=== PATIENT | female | born 1985 | race Caucasian/White ===

== ENCOUNTER 2017-03-28 19:20 | Emergency (ER) | payer SELFPAY ==
[~2017-03-28 19:20] MED LIST: ACET500C5 PO; CETI10CA PO; CITROMA PO; DICY10CA60 PO; DOCU-144 PO; GUAI120011 PO; IBUP-1542 PO; TRAM50TA2 PO
[2017-03-29] MEDS ORDERED: ACET325T33 PO (22:15)
[2017-03-29] MEDS ORDERED: IBUP400T22 PO (22:15)
[2017-03-29] MEDS ORDERED: ONDA4TAB8 PO (22:17)
[2017-03-29] MEDS ORDERED: CEPH-443 PO (22:21)
== END 2017-03-28 20:45 | disposition left against medical advice (07) ==
LOC: E/R 19:20
DX: Z53.21 Procedure and treatment not carried out due to patient leaving prior to being seen by health care provider (principal)

== ENCOUNTER 2017-03-29 17:06 | Emergency (ER) | payer OTHER ==
[~2017-03-29] VITALS: Wt 67.3 kg
[2017-03-29] MEDS ORDERED: SOD CHLORIDE 0.9% 1,000 ML IV STA (19:58)
[2017-03-29] MEDS ORDERED: ONDANSETRON 4 MG INJ IV STA (19:58)
[2017-03-29] MEDS ORDERED: morphine 4 MG/ML VIAL IV STA ×2 (19:58→21:02)
[2017-03-29 20:24] LABS: URINE BLOOD (Dip) POC 1+ (NEGATIVE)
[2017-03-29 20:43] LABS: BASOPHILS % 0.3 % (0.0-2.0); EOSINOPHILS # 0.1 10^3/ul (0.0-0.5); EOSINOPHILS % 1.4 % (0.0-7.0); HEMATOCRIT 38.3 % (37.0-47.0); HEMOGLOBIN 13.2 g/dl (12.0-16.0); LYMPHOCYTES # 2.6 10^3/ul (0.8-2.9); LYMPHOCYTES % 27.7 % (15.0-51.0); MEAN CORPUSCULAR HEMOGLOBIN 30.6 pg (29.0-33.0); MEAN CORPUSCULAR HGB CONC 34.5 g/dl (32.0-37.0); MEAN CORPUSCULAR VOLUME 88.9 fl (82.0-101.0); MEAN PLATELET VOLUME 10.1 fl (7.4-10.4); MONOCYTE # 0.7 10^3/ul (0.3-0.9); MONOCYTES % 7.6 % (0.0-11.0); NEUTROPHILS % 62.4 % (39.0-77.0); PLATELET COUNT 235 10^3/UL (140-415); RED BLOOD COUNT 4.31 10^6/ul (4.20-5.40); WHITE BLOOD COUNT 9.4 10^3/ul (4.8-10.8)
[2017-03-29 20:59] LABS: ADD UMIC YES; UR ASCORBIC ACID 40 mg/dL (NEGATIVE); UR BACTERIA FEW /HPF (NONE SEEN); UR BILIRUBIN (Dip) NEGATIVE (NEGATIVE); UR BLOOD (Dip) NEGATIVE (NEGATIVE); UR CLARITY CLOUDY (CLEAR); UR COLOR AMBER (YELLOW); UR GLUCOSE (Dip) NEGATIVE (NEGATIVE); UR KETONES (Dip) NEGATIVE (NEGATIVE); UR LEUKOCYTE ESTERASE (Dip) 2+ Leu/ul (NEGATIVE); UR MUCUS FEW /HPF (NONE SEEN); UR NITRITE (Dip) POSITIVE (NEGATIVE); UR RBC 4 /HPF (0-5); UR SPECIFIC GRAVITY (Dip) 1.011 (1.003-1.030); UR SQUAMOUS EPITHELIAL CELL FEW /HPF (FEW); UR TOTAL PROTEIN (Dip) NEGATIVE (NEGATIVE); UR UROBILINOGEN (Dip) NEGATIVE (NEGATIVE)
[2017-03-29 21:06] LABS: ALBUMIN 4.6 g/dl (3.3-4.9); ALBUMIN/GLOBULIN RATIO 1.15; BILIRUBIN,INDIRECT 0.1 mg/dl (0-1.1); BILIRUBIN,TOTAL 0.1 mg/dl (0.2-1.3); CALCIUM 10.1 mg/dl (8.4-10.2); CREATININE 0.76 mg/dl (0.44-1.00); POTASSIUM 4.1 mmol/L (3.5-5.1); TOTAL PROTEIN 8.6 g/dl (6.1-8.1)
[2017-03-29] MEDS ORDERED: FAMOTIDINE 20 MG INJ IV ONE (21:30)
--- NOTE | 2017-03-29 21:42 | RADRPT ---
PROCEDURE: CT Head without contrast. CLINICAL INDICATION: headache TECHNIQUE: Continuous axial CT images were obtained from the base of skull to the vertex. No cont rast was administered. The calculated radiation dose measures 769 mGy centimeters. The CTDI measures 40 mGy One or more of the following dose reduction techniques were used: Automated exposure control. Adjustment of the mA and/or kV according to patient size. Use of iterative reconstruction technique. COMPARISON: None available FINDINGS: The ventricles are symmetric and normal in size. There is no mass effect or midline shift. There i s no abnormal intra-axial or extra-axial fluid collection. There is no evidence of intracranial hem orrhage. There are no abnormal areas of increased or decreased attenuation in the brain parenchyma. The bony calvarium is intact. The orbital soft tissue contents are unremarkable. Paranasal sinuses appear clear IMPRESSION: No mass effect or acute intracranial bleed. Unremarkable CT brain. RPTAT: HBST .Magan Chiang MD, MD Date Time Electronically viewed and signed by .Magan Chiang MD, on 03/29/2017 21:42 .T/
[2017-03-29] MEDS ORDERED: CEFTRIAXONE 1 GM/50 ML (PMX) 50 ML IVPB ONE (22:00)
--- NOTE | 2017-03-29 22:00 | RADRPT ---
PROCEDURE: CT abdomen and pelvis without contrast. CLINICAL INDICATION: Abdominal Pain TECHNIQUE: CT scan of the abdomen and pelvis without contrast was performed. The patient was scan francisco without intravenous contrast. 3-D coronal reformatted images were obtained from the axial [facility] e images. The calculated radiation dose measures 374 mGy centimeters. The CTDI measures 7 mGy. One or more of the following dose reduction techniques were used: Automated exposure control. Adjustment of the mA and/or kV according to patient size. Use of iterative reconstruction technique. COMPARISON: None. FINDINGS: CT abdomen: There is a 5 mm nodule or focal scarring in the lingula, similar from prior exam.. The liver is normal in size and density, without intrahepatic biliary dilatation. The spleen and p ancreas are unremarkable noncontrast appearance. The gallbladder appears within normal limits. The adrenal glands are symmetric and normal. The kidneys appear normal in size and contour. There is a left mid pole renal cyst, 6 mm. No renal c alculus or hydronephrosis is visualized. There is no ascites or retroperitoneal lymphadenopathy. Visualized bowel loops appear within normal limits. The appendix appears normal. CT pelvis: The urinary bladder appears normal. The pelvic organs are within normal limits. There is no abnorm al pelvic mass or adenopathy. There is no pelvic free fluid. Visualized osseous structures appear unremarkable. IMPRESSION: Unremarkable noncontrast CT scan of the abdomen and pelvis. The appendix is seen and appears within normal limits. No hydronephrosis or nephrolithiasis. 5 mm pulmonary nodule or focal scarring in the lingula, similar from prior examination. RPTAT: HBST .Magan Chiang MD, Date Time Electronically viewed and signed by .Magan Chiang MD, MD on 03/29/2017 21:59 .T/
[2017-03-29] MEDS ORDERED: ACET325T33 PO (22:15)
[2017-03-29] MEDS ORDERED: IBUP400T22 PO (22:15)
[2017-03-29] MEDS ORDERED: ONDA4TAB8 PO (22:17)
[2017-03-29] MEDS ORDERED: CEPH-443 PO (22:21)
[2017-03-29] MEDS ORDERED: ONDANSETRON 4 MG TAB PO ONE (22:30)
--- NOTE | 2017-03-29 22:51 | ERD ---
ER Documentation Chief Complaint Date/Time DATE: 03/29/17 TIME: 22:41 Chief Complaint lower mid abd pain, lafleur, n/v HPI This is a 31-year-old female presenting to emergency department for lower jessica pain with nausea and vomiting. Patient states she has chronic lower abdominal pain and history of endometriosis. Patient states she takes "strong pain medication" and at times they make her nauseous and at times vomit. No vaginal bleeding or vaginal discharge. Patient's last menstrual period 8 months ago and patient states she receives a "shot every month" and therefore does not have her period.No dysuria, hematuria, urinary frequency or urgency. No new sexual partners. Patient also reports sudden onset of severe headache. Patient states this is the worst headache she is ever had. No confusion or altered mental status. No slurred speech, weakness or fatigue. No numbness or tingling. No blurry vision or loss of vision. Patient states she has never had a headache like this before. ROS All systems reviewed and are negative except as per history of present illness. Medications Home Meds Active Scripts Cephalexin* (Keflex*) 500 Mg Capsule, 500 MG PO BID for 7 Days, CAP Prov:ROSALBA GARCIA NP 03/29/17 Ondansetron Hcl* (Zofran*) 4 Mg Tablet, 4 MG PO Q6H for NAUSEA AND/OR VOMITING, #10 TAB Prov:ROSALBA GARCIA NP 03/29/17 Acetaminophen* (Tylenol*) 325 Mg Tablet, 1 TAB PO Q6 Y for PAIN AND OR ELEVATED TEMP, #20 TAB Prov:ROSALBA GARCIA NP 03/29/17 Ibuprofen* (Motrin*) 400 Mg Tab, 400 MG PO Q6, #15 TAB Prov:ROSALBA GARCIA NP 03/29/17 Docusate Sodium* (Colace*) 100 Mg Capsule, 100 MG PO TID, #30 CAP Prov:MAXI STOREY MD 07/08/16 Tramadol HCl (Tramadol HCl) 50 Mg Tablet, 50 MG PO Q4 Y for PAIN, #20 TAB Prov:MAXI STOREY MD 07/08/16 Magnesium Citrate* (Citroma*) 300 Ml Soln, 300 ML PO ONCE for 1 Day, #1 BOTTLE Prov:MAXI STOREY MD 07/08/16 Cetirizine Hcl* (Zyrtec*) 10 Mg Capsule, 10 MG PO DAILY, #10 TAB.CHEW Prov:TENNILLE DIXONWale STEVE 06/18/16 Guaifenesin (Mucinex) 1,200 Mg Tab.er.12h, 1200 MG PO BID for 7 Days, TAB Prov:TENNILLE DIXONWale STEVE 06/18/16 Acetaminophen* (Tylophen*) 500 Mg Capsule, 1 CAP PO Q6H Y for PAIN AND OR ELEVATED TEMP, #30 CAP Prov:TENNILLE DIXONWale STEVE 06/18/16 Ibuprofen* (Motrin*) 600 Mg Tab, 600 MG PO Q6, #30 TAB Prov:DESTINYTENNILLE MWale STEVE 06/18/16 Dicyclomine Hcl* (Bentyl*) 10 Mg Capsule, 10 MG PO QID, #30 CAP Prov:ZARINA IBARRA 05/04/16 Docusate Sodium* (Colace*) 100 Mg Capsule, 100 MG PO TID, #30 CAP Prov:ZARINA IBARRA 05/04/16 Allergies Allergies: Coded Allergies: No Known Allergy (Unverified , 07/08/16) PMhx/Soc History of Surgery: Yes (,Tubal Ligation) Anesthesia Reaction: No Hx Neurological Disorder: No Hx Respiratory Disorders: No Hx Cardiac Disorders: No Hx Psychiatric Problems: No Hx Miscellaneous Medical Probl: Yes (Endometrosis,Pyelonephritis) Hx Alcohol Use: No Hx Substance Use: No Hx Tobacco Use: No Smoking Status: Never smoker Physical Exam Vitals Vital Signs Date Time Temp Pulse Resp B/P Pulse Ox O2 Delivery O2 Flow Rate FiO2 03/29/17 17:23 99.1 99 20 116/79 98 Physical Exam Const: Alert, no acute distress Head: Atraumatic Eyes: Normal Conjunctiva, PERRL, EOMs intact. No subconjunctival hemorrhage. ENT: Normal External Ears, Nose and Mouth. Neck: Full range of motion..~ No meningismus. Resp: Clear to auscultation bilaterally. No wheezing, rhonchi or crackles. No stridor or labored breathing. Patient is talking in complete sentences. Cardio: Regular rate and rhythm, no murmurs Abd: Soft, non tender, non distended. Normal bowel sounds. Negative Omalley sign. Negative rebound tenderness. No tenderness at McBurney's point. Patient has suprapubic tenderness. Skin: No petechiae or rashes Back: No midline or flank tendernessNo CVA tenderness. Ext: No cyanosis, or edema Neur: Awake and alert Psych: Normal Mood and Affect Result Diagram: 03/29/17201203/29/172012 Results 24 hrs Laboratory Tests Test 03/29/17 20:13 03/29/17 20:30 White Blood Count 9.410^3/ul Red Blood Count 4.3110^6/ul Hemoglobin 13.2g/dl Hematocrit 38.3% Mean Corpuscular Volume 88.9fl Mean Corpuscular Hemoglobin 30.6pg Mean Corpuscular Hemoglobin Concent 34.5g/dl Red Cell Distribution Width 12.0% Platelet Count 78150^3/UL Mean Platelet Volume 10.1fl Neutrophils % 62.4% Lymphocytes % 27.7% Monocytes % 7.6% Eosinophils % 1.4% Basophils % 0.3% Nucleated Red Blood Cells % 0.0/100WBC Neutrophils # (Manual) 5.910^3/ul Lymphocytes # 2.610^3/ul Monocytes # 0.710^3/ul Eosinophils # 0.110^3/ul Basophils # 0.010^3/ul Nucleated Red Blood Cells # 0.010^3/ul Urine Color FRANCISCA Urine Clarity CLOUDY Urine pH 6.0 Urine Specific [place] 1.011 Urine Ketones NEGATIVEmg/dL Urine Nitrite POSITIVEmg/dL Urine Bilirubin NEGATIVEmg/dL Urine Urobilinogen NEGATIVEmg/dL Urine Leukocyte Esterase 2+Dru/ul Urine Microscopic RBC 4/HPF Urine Microscopic WBC 61/HPF Urine Squamous Epithelial Cells FEW/HPF Urine Bacteria FEW/HPF Urine Mucus FEW/HPF Urine Hemoglobin NEGATIVEmg/dL Urine Glucose NEGATIVEmg/dL Urine Total Protein NEGATIVEmg/dl Sodium Level 144mmol/L Potassium Level 4.1mmol/L Chloride Level 98mmol/L Carbon Dioxide Level 31mmol/L Anion Gap 19 Blood Urea Nitrogen 14mg/dl Creatinine 0.76mg/dl Glucose Level 89mg/dl Calcium Level 10.1mg/dl Total Bilirubin 0.1mg/dl Direct Bilirubin 0.00mg/dl Indirect Bilirubin 0.1mg/dl Aspartate Amino Transf (AST/SGOT) 28IU/L Alanine Aminotransferase (ALT/SGPT) 31IU/L Alkaline Phosphatase 83IU/L Total Protein 8.6g/dl Albumin 4.6g/dl Globulin 4.00g/dl Albumin/Globulin Ratio 1.15 Lipase 43U/L Serum HCG, Qualitative NEGATIVE Beta HCG, Quantitative < 2.4mIU/ml Bedside Urine pH (LAB) 6.0 Bedside Urine Protein (LAB) Negative Bedside Urine Glucose (UA) Negative Bedside Urine Ketones (LAB) Negative Bedside Urine Blood 1+ Bedside Urine Nitrite (LAB) Positive Bedside Urine Leukocyte Esterase (L 1+ Current Medications Medications (Trade) Dose Ordered Sig/Artemio Route PRN Reason Start Time Stop Time Status Last Admin Dose Admin Sodium Chloride (NS) 1,000 ml @ 1,000 mls/hr Q1H STAT IV 03/29/17 19:58 03/29/17 20:57 DC 03/29/17 20:27 Morphine Sulfate (morphine) 4 mg ONCE STAT IV 03/29/17 19:58 03/29/17 20:01 DC 03/29/17 20:26 Ondansetron HCl (Zofran Inj) 4 mg ONCE STAT IV 03/29/17 19:58 03/29/17 20:01 DC 03/29/17 20:26 Morphine Sulfate (morphine) 4 mg ONCE STAT IV 03/29/17 21:02 03/29/17 21:03 DC 03/29/17 21:12 Famotidine 20 mg 20 mg ONCE ONCE IV 03/29/17 21:30 03/29/17 21:31 DC 03/29/17 21:38 Ceftriaxone Sodium (Rocephin) 50 ml @ 100 mls/hr ONCE ONCE IVPB 03/29/17 22:00 03/29/17 22:29 DC 03/29/17 22:28 Ondansetron HCl (Zofran Tab) 4 mg ONCE ONCE PO 03/29/17 22:30 03/29/17 22:38 DC Procedures/[place] [address] Radiology Main Line: [phone] DIAGNOSTIC IMAGING REPORT Patient: RUCHI GANNON : 1985 Age: 31 Sex: F MR #: [id number] DOS: 03/29/171957 Ordering MD: ROSALBA GARCIA NP Location: [facility] Room/Bed: PROCEDURE: CT abdomen and pelvis without contrast. CLINICAL INDICATION: Abdominal Pain TECHNIQUE: CT scan of the abdomen and pelvis without contrast was performed. The patient was scanned without intravenous contrast. 3-D coronal reformatted images were obtained from the axial source images. The calculated radiation dose measures 374 mGy centimeters. The CTDI measures 7 mGy. One or more of the following dose reduction techniques were used: Automated exposure control. Adjustment of the mA and/or kV according to patient size. Use of iterative reconstruction technique. COMPARISON: None. FINDINGS: CT abdomen: There is a 5 mm nodule or focal scarring in the lingula, similar from prior exam.. The liver is normal in size and density, without intrahepatic biliary dilatation. The spleen and pancreas are unremarkable noncontrast appearance. The gallbladder appears within normal limits. The adrenal glands are symmetric and normal. The kidneys appear normal in size and contour. There is a left mid pole renal cyst, 6 mm. No renal calculus or hydronephrosis is visualized. There is no ascites or retroperitoneal lymphadenopathy. Visualized bowel loops appear within normal limits. The appendix appears normal. CT pelvis: The urinary bladder appears normal. The pelvic organs are within normal limits. There is no abnormal pelvic mass or adenopathy. There is no pelvic free fluid. Visualized osseous structures appear unremarkable. IMPRESSION: Unremarkable noncontrast CT scan of the abdomen and pelvis. The appendix is seen and appears within normal limits. No hydronephrosis or nephrolithiasis. 5 mm pulmonary nodule or focal scarring in the lingula, similar from prior examination. [place] [address] Radiology Main Line: [phone] DIAGNOSTIC IMAGING REPORT Patient: RUCHI GANNON : 1985 Age: 31 Sex: F MR #: [id number] [facility] #: [id number] DOS: 03/29/172127 Ordering MD: ROSALBA GARCIA NP Location: [facility] Room/Bed: PROCEDURE: CT Head without contrast. CLINICAL INDICATION: headache TECHNIQUE: Continuous axial CT images were obtained from the base of skull to the vertex. No contrast was administered. The calculated radiation dose measures 769 mGy centimeters. The CTDI measures 40 mGy One or more of the following dose reduction techniques were used: Automated exposure control. Adjustment of the mA and/or kV according to patient size. Use of iterative reconstruction technique. COMPARISON: None available FINDINGS: The ventricles are symmetric and normal in size. There is no mass effect or midline shift. There is no abnormal intra-axial or extra-axial fluid collection. There is no evidence of intracranial hemorrhage. There are no abnormal areas of increased or decreased attenuation in the brain parenchyma. The bony calvarium is intact. The orbital soft tissue contents are unremarkable. Paranasal sinuses appear clear IMPRESSION: No mass effect or acute intracranial bleed. Unremarkable CT brain. MDM: This is a 31-year-old female presenting to emergency department with lower abdominal pain, nausea, vomiting and headache. Patient has intermittent chronic lower abdominal pain and history of endometriosis. [place] Patient had one episode of nonbloody nonbilious emesis today. Patient still feels nauseous and has sudden onset severe headache. No weakness, dizziness, loss of vision or blurry vision. No fevers or chills. IV access obtained and patient given morphine 4 mg IV and Zofran 4 mg IV . CBC shows no significant anemia or infection. CMP shows no significant electrolyte imbalance. Liver enzymes are normal. Bilirubin is normal. Glucose is normal. Lipase is 43. Urine shows 2+ leukocyte esterase , White blood cells 61 and positive nitrite. Urine is negative. Beta- hCG negative. CT abdomen and pelvis reviewed by radiologist is unremarkable. Patient is requesting a brain CT and states this is the worst headache she is ever had and is concerned. There is no neuro deficits on physical exam. Patient is alert and oriented to person place and time. However because patient has sudden onset headache and states this is the worst headache she has had a brain CT was ordered. Brain CT reviewed by radiologist is unremarkable.Upon reassessment of patient, patient states pain and nausea have improved. No active vomiting while in the ED. Denies headache. Differential diagnosis includes but not limited to acute appendicitis, diverticulitis, diverticulosis, bowel obstruction, constipation, infectious colitis, irritable bowel syndrome, inflammatory bowel disease, viral gastroenteritis, abdominal aortic aneurysm, food intolerance, celiac disease, UTI, pyelonephritis, nephrolithiasis, acute urinary retention or colorectal cancer. I doubt any emergent conditions such as appendicitis, diverticulitis, pyelonephritis, bowel obstruction, abdominal aortic aneurysm at this time due to normal vital signs and normal lab results. Patient is appropriate for outpatient management. Patient will be given prescription for Tylenol, ibuprofen and Zofran. Instructed patient to follow- up with primary care provider in the next 2-3 days for reassessment and additional management. Return to ED for any high fever, chest pain, difficulty breathing, shortness breath, wheezing, vomiting, diarrhea, abdominal pain or any new or worsening symptoms. Patient verbalizes understanding. All questions answered at discharge. Disclaimer: Inadvertent spelling and grammatical errors are likely due to EHR/ dictation software use and do not reflect on the overall quality of patient care. Also, please note that the electronic time recorded on this note does not necessarily reflect the actual time of the patient encounter. Departure Diagnosis: Primary Impression: UTI (urinary tract infection) Urinary tract infection type: acute cystitis Hematuria presence: with hematuria Qualified Code: N30.01 - Acute cystitis with hematuria Additional Impression: Abdominal pain Abdominal location: generalized Qualified Code: R10.84 - Generalized abdominal pain Condition: Stable Patient Instructions: Understanding Urinary Tract Infections (UTIs) Ref[facility] Usted se lafleur hecho un examen mdico de control que le indica que no est en ruth condicin que requiera tratamiento urgente en el Departamento de Emergencia. Un estudio ms profundo y el tratamiento de garland condicin pueden esperar sin ningn riesgo hasta que usted sea atendida/o en el consultorio de garland mdico o ruth cl toshia. Es responsabilidad suya arreglar ruth jorge para el seguimiento del radha. MANEJO DE CONDICIONES NO URGENTES EN EL FUTURO 1) Si usted tiene un mdico de atencin primaria: Usted debera llamar a garland mdico de atencin primaria antes de venir al departamento de emergencia. Despus de las horas de consultorio, garland doctor o garland asociado/a est disponible por telfono. El mdico o enfermero de yuki en el servicio telefnico puede asesorarle por ramiro medio para atender el problema, o radha contrario se puede programar ruth jorge. 2) Si usted no tiene un mdico de atencin primaria: Llame al mdico o clnica de referencia que aparece abajo karlos las horas de consultorio para hacer ruth jorge para que le vean. CLINICAS: [facility] [phone] [facility] [phone] [facility] [phone] [facility] [phone] [place] [address] [phone] [facility] [phone] [address] [facility] [facility] () Usted se lafleur hecho un examen mdico de control que le indica que no est en ruth condicin que requiera tratamiento urgente en el Departamento de Emergencia. Un estudio ms profundo y el tratamiento de garland condicin pueden esperar sin ningn riesgo hasta que usted sea atendida/o en el consultorio de garland mdico o ruth cl toshia. Es responsabilidad suya arreglar ruth jorge para el seguimiento del radha. MANEJO DE CONDICIONES NO URGENTES EN EL FUTURO 1) Si usted tiene un mdico de atencin primaria: Usted debera llamar a garland mdico de atencin primaria antes de venir al departamento de emergencia. Despus de las horas de consultorio, garland doctor o garland asociado/a est disponible por telfono. El mdico o enfermero de yuki en el servicio telefnico puede asesorarle por ramiro medio para atender el problema, o ardha contrario se puede programar ruth jorge. 2) Si usted no tiene un mdico de atencin primaria: Llame al mdico o condado institucions de referencia que aparece abajo karlos las horas de consultorio para hacer ruth jorge para que le vean. SI USTED NO PUEDE PAGAR PARA KEISHA UN MEDICO puede ir a: [facility] [address] [place] [address] [facility] [address] [place] [address] [facility] [address] [place] [address] [facility] [address] [place], [place] [id number] Additional Instructions: Llame al doctor MAANA y mine ruth JORGE PARA DENTRO DE 2-3 MCCLOUD.Dgale a la secretaria que nosotros le instruimos hacer esta jorge.Avise o llame si garland condicin se empeora antes de la jorge. Regresa aqui si peor o no mejor. Regresar a ED por fiebre [place], dolor en el pecho, dificultad para respirar, respiracin entrecortada, sibilancias, vmitos, diarrea, dolor abdominal o cualquier sntoma nuevo o que empeora. ROSALBA GARCIA NP Mar 29, 2017 22:51
[2017-03-29 22:57] VITALS: BP 130/97; PULSE 75; RESP 16
== END 2017-03-29 22:59 | disposition home or self-care (01) ==
LOC: FTE 17:06
DX: N30.01 Acute cystitis with hematuria (principal); R10.84 Generalized abdominal pain; R51 Headache
CPT/HCPCS: 36415; 70450; 74176; 80053; 81001; 83690; 84702; 84703; 85025; 87086; 96374; 96375; 96376; J0696; J2270; J2405; J7030; Z7502; Z7610; 81003

== ENCOUNTER 2017-06-01 05:12 | Inpatient (IN) | payer OTHER ==
--- NOTE | 2017-05-30 01:36 | PREOPHP ---
DATE OF ADMISSION: 06/01/2017 HISTORY OF PRESENT ILLNESS: This is a 31-year-old female, 2, para 1, abortions 1. This pool peck had been a frequent ER patient for her visits for the last couple of years. She had always bee n coming in for adhesions, pain, bleeding, ectopic . She had a history of a secti on and a tubal . She had a pelviscopic cystectomy, abnormal Pap smears. She also had a pe lviscopic partial salpingectomy. Both tubes were removed through the laparoscopy on the recent lapa roscopy last year. This patient has still been frequenting the ER due to pain and bleeding. She lafleur s been advised for control pills, antibiotics, all kinds of medical treatment. She was diagno sed with PID, pelvic adhesions, double uterus, endometriosis, fibroid uterus as well. The patient w as given Lupron injections that have been reducing a little bit of her pain. She had about 6 inject ions and she is still with less pain, but still with pain and on treatment by pain centers due to th e fact that she is frequently coming in to the ER due to pelvic pain with intractability to the poin t where she states she is not able to perform her regular activities and have a normal life. The niels nguyễn had been using old medical treatment, possible for her pelvic pain adhesions and endometriosis and pelvic infection, and at this time, she is requesting a hysterectomy due to the fact that there is no treatment for her and she is still going to pain clinic and she is not able to perform her re gular activities since she is taking daily pain meds and makes her dizzy and with the narcotic side effects. The patient would like to have everything removed, even her ovaries. She was advised that if she has endometriosis we probably will remove even the ovaries to put her on estrogen replacemen t therapy to cure her from her severe endometriosis pain. The patient was not willing to continue w ith more Lupron. She had 6 that were still not totally giving her pain free status and she would go to [place] if we do not do any help for [place]. The patient is advised for a total abdom inal hysterectomy, bilateral salpingo-oophorectomy due to the intractability and chronicity of her p elvic pain, the severity of her endometriosis and pelvic infections, adhesions that were secondary t o PID. She understands that she will be on estrogen replacement therapy. PAST MEDICAL HISTORY: As I said, she had a , pelviscopic salpingectomy, lysis of adhesions , ovarian cystectomy through pelviscopy and also lately with abnormal Pap smears. She has few colpo scopies done. At this time, the patient is on heavy pain medications to be able to resist the pain that she gets on a daily basis. ALLERGIES: THE PATIENT IS NOT ALLERGIC TO ANY MEDICATIONS. MEDICATIONS: 1. She has been on Lupron injection for the last few months. 2. She is taking Nucynta 5 mg. FAMILY HISTORY: Hypertension and diabetes. REVIEW OF SYSTEMS: Pertinent only to her pelvic pain and back pain. SOCIAL HISTORY: No history of drug abuse, smoking or drinking. PHYSICAL EXAMINATION: VITAL SIGNS: She is 5 feet 4 inches. She weighs 139 pounds. Her blood pressure is 120/70, pulse i s 80, respirations 16. HEAD AND NECK: Normal. CHEST: Clear. HEART: Normal sinus rhythm. LUNGS: Clear. BREASTS: Soft, nontender, no masses. ABDOMEN: Soft, nontender, no masses. Right now she has been on medication for pain. PELVIC: The uterus is enlarged with a double uterus and very painful mobilization of the uterus and bilateral adnexa area where there are no masses. RECTAL: With painful uterus. EXTREMITIES: Normal with normal pulses, no edema and normal reflexes. DIAGNOSES: 1. Intractable chronic pelvic pain. 2. Severe endometriosis and pelvic adhesions. 3. Previous pelvic infection. PLAN: She is undergoing a total abdominal hysterectomy, bilateral salpingo-oophorectomy, and possib le bilateral salpingo-oophorectomy in case of severe endometriosis. This will have been the solutio n. The patient knows and understands that she will fall in menopause and she will start needing est rogen replacement therapy and she would rather take that than be on drugs for pain for pain manageme nt. She has been advised of the possible risks and possible complications of the procedure with her alternatives and options. Written information was provided. She had no more questions and agreed to go ahead with the procedure with full understanding and no more questions. Dictated By: JOSE EAST/EILEEN Conf#: [id number] DID#: [id number]
[2017-05-31 10:22] VITALS: BMI 25.5
[2017-06-01] VITALS (29 sets, daily range): BP systolic 109–128; BP diastolic 54–87; PULSE 85–113; RESP 13–57; Ht 160 cm; Wt 62.4 kg
[~2017-06-01] VITALS: Ht 160 cm; Wt 62.4 kg
[~2017-06-01 05:12] MED LIST changes: +ACET325T33 PO; +CEPH-443 PO; +IBUP400T22 PO; +ONDA4TAB8 PO
[2017-06-01] MEDS ORDERED: CEFAZOLIN 2 GM/50 ML (PMX) 50 ML IVPB SCH (06:00)
[2017-06-01] MEDS ORDERED: DEXTROSE 5%-LR 1,000 ML IV SCH (06:00)
[2017-06-01] MEDS ORDERED: CIPR500T4 PO (06:32)
[2017-06-01] MEDS ORDERED: LIDOCAINE 2% (SDV) 5 ML INJ ONE (06:34)
[2017-06-01] MEDS ORDERED: FENTAnyl 50 MCG/ML VIAL ONE (06:35)
[2017-06-01] MEDS ORDERED: GLYCOPYRROLATE 0.4 MG INJ ONE (06:35)
[2017-06-01] MEDS ORDERED: PROPOFOL 20 ML ONE (06:35)
[2017-06-01] MEDS ORDERED: NEOSTIGMINE 3 MG/3 ML SYRINGE ONE (06:35)
[2017-06-01] MEDS ORDERED: MIDAZOLAM 1 MG/ML 2 ML INJ ONE (06:35)
[2017-06-01] MEDS ORDERED: ROCURONIUM 50 MG INJ ONE (06:35)
[2017-06-01] MEDS ORDERED: ONDANSETRON 4 MG INJ ONE (06:36)
[2017-06-01] MEDS ORDERED: DEXAMETHASONE 4 MG/ML 1 ML INJ ONE (06:36)
[2017-06-01] MEDS ORDERED: morphine SULFATE/PF (10 MG/10 ML) INJ ONE (06:36)
[2017-06-01] MEDS ORDERED: SUGAMMADEX SODIUM 200 MG/2 ML VIAL IV ONE (06:39)
[2017-06-01] MEDS ORDERED: MEPERIDINE 25 MG INJ IV PRN (07:00)
[2017-06-01] MEDS ORDERED: morphine (1 MG/ML) 10ML SYRINGE IV PRN ×3 (07:00)
[2017-06-01] MEDS ORDERED: hydrALAzine 20 MG INJ IV PRN (07:00)
[2017-06-01] MEDS ORDERED: FENTAnyl 50 MCG/ML VIAL IV PRN ×2 (07:00)
[2017-06-01] MEDS ORDERED: HYDROmorphONE (0.2 MG/ML) 10ML SYG IV PRN ×2 (07:00)
[2017-06-01] MEDS ORDERED: ATROPINE 1 MG/10 ML SYRINGE IV PRN (07:00)
[2017-06-01] MEDS ORDERED: CEFAZOLIN 1 GM INJ ONE (07:00)
[2017-06-01] MEDS ORDERED: OXYCODONE/ACETAMINOPHEN (5/325) TAB PO PRN ×2 (07:00)
[2017-06-01] MEDS ORDERED: DIPHENHYDRAMINE 50 MG INJ IV PRN (07:00)
[2017-06-01] MEDS ORDERED: LABETALOL HCL 20MG INJ IV PRN (07:00)
[2017-06-01] MEDS ORDERED: MIDAZOLAM 1 MG/ML 2 ML INJ IV PRN (07:00)
[2017-06-01] MEDS ORDERED: EPHEDrine SULFATE 50 MG/5 ML SYG IV PRN (07:00)
[2017-06-01] MEDS ORDERED: ONDANSETRON 4 MG INJ IV PRN (07:00)
--- NOTE | 2017-06-01 07:43 | HPN ---
Date/Time of Note Date/Time of Note DATE: 06/01/17 TIME: 07:42 Interval H&P Admission Note Pt. seen H&P reviewed: No system changes JOSE RAMIREZ MD Jun 01, 2017 07:43
[2017-06-01] MEDS ORDERED: DIPHENHYDRAMINE 50 MG CAP PO PRN (08:00)
[2017-06-01] MEDS ORDERED: HYDROCODONE/APAP (5/325) TAB PO PRN (08:00)
[2017-06-01] MEDS ORDERED: BISACODYL (EC) 5 MG TAB PO PRN (08:00)
[2017-06-01] MEDS ORDERED: ZOLPIDEM 5 MG TAB PO PRN (08:00)
--- NOTE | 2017-06-01 09:58 | SIPON ---
Date/Time of Note Date/Time of Note DATE: 06/01/17 TIME: 09:55 Operative Report Preoperative Diagnosis intractable pelvic pain and bleeding severe endometriosis previous bilateral ovarian cystectomies Postoperative Diagnosis same Operation/Procedure Performed BALJIT RIGHT OVARIAN BIOPSY Surgeon see signature line assistant professor of biochemistry DR WILLIAMSON Anesthesia: general Estimated blood loss: 10 - 50 ml's Transfusion Required none Specimen UTERUS RIGHT OVARIAN TISSUE Grafts/Implants none Complications none JOSE RAMIREZ MD Jun 01, 2017 09:58
--- NOTE | 2017-06-01 09:58 | SIPON ---
Date/Time of Note Date/Time of Note DATE: 06/01/17 TIME: 09:55 Operative Report Preoperative Diagnosis intractable pelvic pain and bleeding severe endometriosis previous bilateral ovarian cystectomies Postoperative Diagnosis same Operation/Procedure Performed BALJIT RIGHT OVARIAN BIOPSY Surgeon see signature line drug safety assistant DR WILLIAMSON Anesthesia: general Estimated blood loss: 10 - 50 ml's Transfusion Required none Specimen UTERUS RIGHT OVARIAN TISSUE Grafts/Implants none Complications none JOES RAMIREZ MD Jun 01, 2017 09:58
--- NOTE | 2017-06-01 09:58 | SIPON ---
Date/Time of Note Date/Time of Note DATE: 06/01/17 TIME: 09:55 Operative Report Preoperative Diagnosis intractable pelvic pain and bleeding severe endometriosis previous bilateral ovarian cystectomies Postoperative Diagnosis same Operation/Procedure Performed BALJIT RIGHT OVARIAN BIOPSY Surgeon see signature line life science research assistant DR WILLIAMSON Anesthesia: general Estimated blood loss: 10 - 50 ml's Transfusion Required none Specimen UTERUS RIGHT OVARIAN TISSUE Grafts/Implants none Complications none JOSE RAMIREZ MD Jun 01, 2017 09:58
[2017-06-01] MEDS ORDERED: NALOXONE (0.4 MG/ML) INJ ONE (10:04)
[2017-06-01] MEDS: HYDROmorphONE (0.2 MG/ML) 10ML SYG IV PRN ×4 (10:45→11:12)
[2017-06-01] MEDS: LACTATED RINGER'S 1,000 ML IV SCH ×3 (11:51→19:56)
[2017-06-01] MEDS: KETOROLAC 30 MG INJ IV SCH ×2 (11:55→18:11)
[2017-06-01] MEDS: METOCLOPRAMIDE 10 MG TAB PO SCH ×2 (11:56→18:11)
--- NOTE | 2017-06-01 13:17 | OPR ---
DATE OF OPERATION: 06/01/2017 OPERATION PERFORMED: Total abdominal hysterectomy, right ovarian biopsy and lysis of adhesions. PREOPERATIVE DIAGNOSES: 1. Intractable pelvic pain and bleeding. 2. Severe endometriosis, pelvic adhesions. 3. Previous bilateral ovarian endometrioma excision with ovarian cystectomy. 4. Previous pelvic inflammatory disease. 5. Previous bilateral salpingectomy through pelviscopy. SURGEON: Jose Jimenez MD SENIOR MECHANICAL PROJECT MANAGER: Shahla Stallworth MD ANESTHESIOLOGIST: Patricio Richmond MD PROCEDURE: The patient was given general anesthesia and a spinal anesthesia, placed in the supine p osition. The abdomen was prepped and draped, and the Engle catheter had been placed in the bladder. An elliptical incision was made around the previous old scar and the scar was removed. The abdome n was opened in layers without difficulties. Abdominal cavity was reached. Omental adhesions were found that were lysed and cut and from the omentum to the left adnexa and to the abdominal wall. This was done with cautery and there was good hemostasis. A self-retaining retractor was pl aced and 3 laps inside to push the bowel up. 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 The omental implant of endometrial implants also were cauterized with bipolar curet. The whole pelvic area was full of endometrial implants, which were burned with cautery. The uterus was grabbed with the Lauri clamp and the ovarian ligaments were clamped and cauterized an d cut. Both round ligaments were clamped, burned and cut. The lysis of the adhesion of the bladder to the cervix from previous was lysed as well and the bladder was pushed down. The uteri ne vessels were clamped and burned and cut on both sides and both cardinal ligaments and uterosacral ligaments were clamped with straight Heaneys, cut and ligated with #1 Vicryl. At this moment the v agina was entered posteriorly with an incision made with the scissors, and Jackelyn scissors were u sed to remove the uterus with the cervix attached. The corners of the vagina were held. There were implants on this area too that ere of the endometriosis that were burned with the cautery. Stitche s were placed on both corners with [id number] sutures with #1 Vicryl and these sutures were hel d. The vagina was closed with interrupted sutures with #1 Vicryl. There was some bleeding behind the bladder where the adhesions were that were cauterized and also a suture with a 2-0 Vicryl GI needle was used to serve the purpose of hemostasis. At this time, the c avity was visualized under water and it was found to be in satisfactory condition. Both ureters wer e tracked down with good peristalsis. There were implants of endometrial endometriosis on top of the uterus as well that were also treated with the bipolar instrument. The right ovary appears to have chris from previous surgery in abundant area. A biopsy of this area was done with a knife . The whole surface of the right ovary was removed on the top part and sutured with a 2-0 Vicryl in terlocking sutures for hemostasis. The left ovary was very small. The right ovary was also a very small from previous ovarian cystectomies from endometrioma. The right ovary was bigger than the lef t and the endometrial implants on the ovaries were burned. Both ovaries were covered with Interceed for protection of adhesions and Surgicel was placed behind the bladder for further hemostasis. The cavity was closed after the sponge and instruments were removed. The instruments were removed. The area was found to be in satisfactory condition and 2-0 Vicryl suture was used for peritoneum, 0 PDS looped suture for the fascia, 2-0 Vicryl for the subcutaneous tissue and 3-0 Monocryl for the s ubcuticular to the skin, Dermabond and Steri-Strips were used. The patient tolerated the procedure well and left the OR awake and stable. Sponge counts, instrument counts, needle counts were correct . Intravenous antibiotics were given for prophylaxis. Blood loss was approximately 50 mL, and the urine was clear at the end of the procedure. Dictated By: JOSE EAST/EILEEN Conf#: [id number] DID#: [id number]
[2017-06-01] MEDS: CEFAZOLIN 1 GM/50 ML (PMX) 50 ML IVPB SCH ×2 (14:09→21:13)
[2017-06-01] MEDS: ONDANSETRON 4 MG INJ IV PRN ×2 (15:05→19:23)
[2017-06-01] MEDS: HYDROmorphONE 1 MG/ML SYG IV PRN (16:52)
--- NOTE | 2017-06-01 19:31 | RADRPT ---
Vent Rate: 67 bpm RR Interval: 0 msec [place] Interval: 132 msec QRS Duration: 78 msec QT Interval: 436 msec QTC Interval: 460 msec P-R-T [place]: 48 - 61 - 40 degrees Normal sinus rhythm Normal ECG Electronically Signed By: Andrea Ortiz [id number]
--- NOTE | 2017-06-01 19:31 | RADRPT ---
Vent Rate: 67 bpm RR Interval: 0 msec [place] Interval: 132 msec QRS Duration: 78 msec QT Interval: 436 msec QTC Interval: 460 msec P-R-T [place]: 48 - 61 - 40 degrees Normal sinus rhythm Normal ECG Electronically Signed By: Andrea Ortiz [id number]
--- NOTE | 2017-06-01 19:31 | RADRPT ---
Vent Rate: 67 bpm RR Interval: 0 msec [place] Interval: 132 msec QRS Duration: 78 msec QT Interval: 436 msec QTC Interval: 460 msec P-R-T [place]: 48 - 61 - 40 degrees Normal sinus rhythm Normal ECG Electronically Signed By: Andrea Ortiz [id number]
[2017-06-02 00:05] VITALS: BP 106/55; RESP 18
[2017-06-02] MEDS: ONDANSETRON 4 MG INJ IV PRN (00:17)
[2017-06-02] MEDS: KETOROLAC 30 MG INJ IV SCH ×5 (00:20→23:44)
[2017-06-02] MEDS: HYDROmorphONE 1 MG/ML SYG IV PRN ×2 (00:22→19:19)
[2017-06-02] MEDS: LACTATED RINGER'S 1,000 ML IV SCH (04:29)
[2017-06-02 05:00] VITALS: BP 101/57; PULSE 78; RESP 20
[2017-06-02] MEDS: CEFAZOLIN 1 GM/50 ML (PMX) 50 ML IVPB SCH (05:27)
[2017-06-02] MEDS: METOCLOPRAMIDE 10 MG TAB PO SCH ×5 (05:36→23:44)
[2017-06-02 07:59] VITALS: BP 102/55; RESP 18
--- NOTE | 2017-06-02 11:24 | PN ---
Date/Time of Note Date/Time of Note DATE: 06/02/17 TIME: 11:23 Assessment/Plan Lines/Catheters IV Catheter Type (from Nrsg): Peripheral IV Engle in Place (from Nrsg): No Subjective 24 Hr Interval Summary doing well afebrile. vitals are stable abdomen soft. incision dry. Patient was explained about the procedure that was done and she is very happy about it Constitutional: BM, ambulates, flatus, improved, no complaints, urine output Feeding: advancing diet Pain Control: mild Detailed Summary Eyes: no complaints ENT: no complaints Respiratory: no complaints Cardiovascular: no complaints Gastrointestinal: no complaints Genitourinary: no complaints Musculoskeletal: no complaints Skin: no complaints Neurologic: no complaints Endocrine: no complaints Lymphatic: no complaints Psychological: nl mood/affect, no complaints Immunologic: no complaints Exam/Review of Systems Vital Signs Vitals Vital Signs Date Time Temp Pulse Resp B/P Pulse Ox O2 Delivery O2 Flow Rate FiO2 06/02/17 07:59 98.0 73 18 102/55 98 06/02/17 05:00 Nasal Cannula 06/01/17 20:05 2.0 Intake and Output 06/01/17 06/01/17 06/02/17 15:00 23:00 07:00 Intake Total 1650 ml 1355 ml 1550 ml Output Total 450 ml 900 ml 1800 ml Balance 1200 ml 455 ml -250 ml Exam Constitutional: alert, oriented, well developed Psych: nl mood/affect, no complaints Head: atraumatic, normocephalic Eyes: EOMI, nl conjunctiva, nl lids, nl sclera ENMT: mucosa pink and moist, nl external ears & nose, nl lips & teeth, nl nasal mucosa & septum Neck: non-tender, supple Respiratory: clear to auscultation, normal air movement Cardiovascular: nl pulses, regular rate and rhythm Gastrointestinal: nl liver, spleen, non-tender, soft Musculoskeletal: nl extremities to inspection, nl gait and stance Extremities: normal pulses Neurological: INVESTIGATION DIVISION LIEUTENANT II-XII intact, nl mental status, nl speech, nl strength Skin: nl turgor, rash or lesions Lymph: nl lymph nodes Results Result Diagram: 06/02/17 0434 06/02/17 0434 JOSE RAMIREZ MD Jun 02, 2017 11:24
[2017-06-02 14:26] VITALS: BP 99/61; RESP 18
[2017-06-02 20:21] VITALS: BP 116/80; RESP 18
[2017-06-03 02:43] VITALS: BP 115/75; RESP 20
[2017-06-03] MEDS: KETOROLAC 30 MG INJ IV SCH ×4 (06:27→23:29)
[2017-06-03] MEDS: METOCLOPRAMIDE 10 MG TAB PO SCH ×4 (06:28→23:30)
[2017-06-03] MEDS: HYDROCODONE/APAP (5/325) TAB PO PRN ×2 (06:38→16:24)
[2017-06-03 07:00] VITALS: BP 107/67; RESP 18
[2017-06-03] MEDS ORDERED: BISACODYL (EC) 5 MG TAB PO ONE (11:30)
--- NOTE | 2017-06-03 11:45 | PD.PPDC ---
SETUP OPERATOR Discharge Instruction Condition Patient Condition: Good Diet Diet: Resume Regular Diet Activity/Restrictions Activity: Normal Activity May Shower Restrictions: No Exercising No Lifting No Driving No Sexual Activity Nothing in the Vagina No [place] No Tampons, douche Wound/Drain Care Instructions Wound/Drain Care Instructions: Remove Steri Strips in 1 week Wash with soap and water Keep clean and dry Follow-up Follow-up with Physician: 2, Week/Weeks Return to clinic for GOLF PLAYER ASSISTANT Instructions: Fever greater than 101 Chills Worsening abdominal pain Excessive Vaginal Bleeding More than 2 pads per hour Unable to tolerate diet Surgical Instructions: Incisional Drainage Incisional Redness JOSE RAMIREZ MD Jun 03, 2017 11:45
--- NOTE | 2017-06-03 11:45 | PD.PPDC ---
MACHINE SPRAYER Discharge Instruction Condition Patient Condition: Good Diet Diet: Resume Regular Diet Activity/Restrictions Activity: Normal Activity May Shower Restrictions: No Exercising No Lifting No Driving No Sexual Activity Nothing in the Vagina No [place] No Tampons, douche Wound/Drain Care Instructions Wound/Drain Care Instructions: Remove Steri Strips in 1 week Wash with soap and water Keep clean and dry Follow-up Follow-up with Physician: 2, Week/Weeks Return to clinic for OPHTHALMIC AIDE Instructions: Fever greater than 101 Chills Worsening abdominal pain Excessive Vaginal Bleeding More than 2 pads per hour Unable to tolerate diet Surgical Instructions: Incisional Drainage Incisional Redness JOSE RAMIREZ MD Jun 03, 2017 11:45
--- NOTE | 2017-06-03 11:45 | PD.PPDC ---
PRICE CHECKER Discharge Instruction Condition Patient Condition: Good Diet Diet: Resume Regular Diet Activity/Restrictions Activity: Normal Activity May Shower Restrictions: No Exercising No Lifting No Driving No Sexual Activity Nothing in the Vagina No [place] No Tampons, douche Wound/Drain Care Instructions Wound/Drain Care Instructions: Remove Steri Strips in 1 week Wash with soap and water Keep clean and dry Follow-up Follow-up with Physician: 2, Week/Weeks Return to clinic for ASSISTANT PROFESSOR OF SOCIOLOGY Instructions: Fever greater than 101 Chills Worsening abdominal pain Excessive Vaginal Bleeding More than 2 pads per hour Unable to tolerate diet Surgical Instructions: Incisional Drainage Incisional Redness JOSE RAMIREZ MD Jun 03, 2017 11:45
--- NOTE | 2017-06-03 11:48 | PN ---
Date/Time of Note Date/Time of Note DATE: 06/03/17 TIME: 11:46 Assessment/Plan Lines/Catheters IV Catheter Type (from Nrsg): Saline Lock Engle in Place (from Nrsg): No Subjective 24 Hr Interval Summary doing better, passing gases. incision dry ambulating had no BM yet Constitutional: BM, ambulates, flatus, improved, no complaints, urine output Feeding: advancing diet Pain Control: severe Detailed Summary Eyes: no complaints ENT: no complaints Respiratory: no complaints Cardiovascular: no complaints Gastrointestinal: no complaints Genitourinary: no complaints Musculoskeletal: no complaints Skin: no complaints Neurologic: no complaints Endocrine: no complaints Lymphatic: no complaints Psychological: nl mood/affect, no complaints Immunologic: no complaints Exam/Review of Systems Vital Signs Vitals Vital Signs Date Time Temp Pulse Resp B/P Pulse Ox O2 Delivery O2 Flow Rate FiO2 06/03/17 07:00 97.7 78 18 107/67 95 06/02/17 05:00 Nasal Cannula 06/01/17 20:05 2.0 Intake and Output 06/02/17 06/02/17 06/03/17 15:00 23:00 07:00 Intake Total 750 ml 1020 ml 450 ml Balance 750 ml 1020 ml 450 ml Exam Constitutional: alert, oriented, well developed Psych: nl mood/affect, no complaints Head: atraumatic, normocephalic Eyes: EOMI, nl conjunctiva, nl lids, nl sclera ENMT: mucosa pink and moist, nl external ears & nose, nl lips & teeth, nl nasal mucosa & septum Neck: non-tender, supple Respiratory: clear to auscultation, normal air movement Cardiovascular: nl pulses, regular rate and rhythm Gastrointestinal: nl liver, spleen, non-tender, soft Musculoskeletal: nl extremities to inspection, nl gait and stance Extremities: normal pulses Neurological: SURVEILLANCE DUAL RATE OFFICER II-XII intact, nl mental status, nl speech, nl strength Skin: nl turgor, rash or lesions Lymph: nl lymph nodes Results Result Diagram: 06/03/17 0434 06/02/17 0434 JOSE RAMIREZ MD Jun 03, 2017 11:48
--- NOTE | 2017-06-03 11:48 | PN ---
Date/Time of Note Date/Time of Note DATE: 06/03/17 TIME: 11:46 Assessment/Plan Lines/Catheters IV Catheter Type (from Nrsg): Saline Lock [place] in Place (from Nrsg): No Subjective 24 Hr Interval Summary doing better, passing gases. incision dry ambulating had no BM yet Constitutional: BM, ambulates, flatus, improved, no complaints, urine output Feeding: advancing diet Pain Control: severe Detailed Summary Eyes: no complaints ENT: no complaints Respiratory: no complaints Cardiovascular: no complaints Gastrointestinal: no complaints Genitourinary: no complaints Musculoskeletal: no complaints Skin: no complaints Neurologic: no complaints Endocrine: no complaints Lymphatic: no complaints Psychological: nl mood/affect, no complaints Immunologic: no complaints Exam/Review of Systems Vital Signs Vitals Vital Signs Date Time Temp Pulse Resp B/P Pulse Ox O2 Delivery O2 Flow Rate FiO2 06/03/17 07:00 97.7 78 18 107/67 95 06/02/17 05:00 Nasal Cannula 06/01/17 20:05 2.0 Intake and Output 06/02/17 06/02/17 06/03/17 15:00 23:00 07:00 Intake Total 750 ml 1020 ml 450 ml Balance 750 ml 1020 ml 450 ml Exam Constitutional: alert, oriented, well developed Psych: nl mood/affect, no complaints Head: atraumatic, normocephalic Eyes: EOMI, nl conjunctiva, nl lids, nl sclera ENMT: mucosa pink and moist, nl external ears & nose, nl lips & teeth, nl nasal mucosa & septum Neck: non-tender, supple Respiratory: clear to auscultation, normal air movement Cardiovascular: nl pulses, regular rate and rhythm Gastrointestinal: nl liver, spleen, non-tender, soft Musculoskeletal: nl extremities to inspection, nl gait and stance Extremities: normal pulses Neurological: ROOFING SALES REPRESENTATIVE II-XII intact, nl mental status, nl speech, nl strength Skin: nl turgor, rash or lesions Lymph: nl lymph nodes Results Result Diagram: 06/03/17 0434 06/02/17 0434 JOSE RAIMREZ MD Jun 03, 2017 11:48
--- NOTE | 2017-06-03 12:34 | DS ---
DATE OF ADMISSION: 06/01/2017 DATE OF DISCHARGE: 06/04/2017 ADMISSION DIAGNOSES: Intractable chronic pelvic pain, severe endometriosis and pelvic adhesions, pr evious pelvic inflammatory disease, previous bilateral ovarian endometrial excision and previous nate ateral salpingectomy. FINAL DIAGNOSIS: Intractable chronic pelvic pain, severe endometriosis and pelvic adhesions, previo us pelvic inflammatory disease, previous bilateral ovarian endometrial excision and previous bilater al salpingectomy plus severe endometriosis. PROCEDURES DONE: Total abdominal hysterectomy, bilateral fulguration of both ovaries with the right ovarian biopsy, fulguration of endometrial implants. PROCEDURE HISTORY: This is a 31-year-old female, 2, para 1 with 1 . This patient h ad been suffering from severe endometriosis for the last few years, going to the Emergency Room on a routine basis for pain medication. She had been diagnosed by different physicians with severe endo metriosis and pelvic inflammatory disease. She already had gone through an exploratory laparotomy w here she had bilateral ovarian endometriomas removed and she had had laparoscopies twice. In the laparoscopy, she had a bilateral salpingectomy. The patient had been treated with antibiotics wi th control pills and with Lupron injections every month for the last almost 8 months. The pool peck had been offered a hysterectomy due to the fact that she already does not have tubs for pregnan cy. She does not want any other babies. She does want to have her normal activities. She wants to be normal and not have to take pain medication on a daily basis. She has been in pain management f or a long time already. The patient had a previous section also and she was adamant about having a hysterectomy. She was also asking to have her ovaries removed, but we did not comply with because of her age. We did a hysterectomy were a double uterus was found, lysis of adhesions. We f ulgurated all the endometrial implants. Both ovaries were very small from previous surgeries and th ere were abundant chris on the right ovary that was bisected and sutured and removed this metal fr om the ovary. The pelvis was full of endometriosis that was fulgurated and treated and she did very well after the surgery. She has been on Toradol IV around the clock for her pain and she has been very happy with the results. She has no previous pain anymore. She only had incisional pain. She has been ambulatory. She has been voiding well, tolerating diet, passing gases with a clean incisio n, afebrile and the hemoglobin and hematocrit were slightly low, but she had no symptoms of chest pa in or any symptoms of anemia. This patient is requesting to go home tomorrow and she was given Christina dol also injections to take home and she was instructed that her should give it IM. He know s how to give injections and she also was given back up for her pain, some Vicodin and ibuprofen p.r .n. She was stable in good condition to go home after bowel movement tomorrow and she will see me i n the office in a week or earlier if she has any problems. She was given further instructions of wh at to do and not to do and she agreed to see me if she has any complications. Dictated By: JOSE EAST/EILEEN Conf#: [id number] DID#: [id number]
[2017-06-03 14:00] VITALS: BP 116/75; RESP 18
[2017-06-03 20:34] VITALS: BP 111/75; RESP 20
[2017-06-04 02:10] VITALS: BP 105/67; RESP 20
[2017-06-04] MEDS: METOCLOPRAMIDE 10 MG TAB PO SCH (05:09)
[2017-06-04] MEDS: HYDROCODONE/APAP (5/325) TAB PO PRN (05:17)
[2017-06-04 08:01] VITALS: BP 112/73; RESP 18
== END 2017-06-04 10:25 | disposition home or self-care (01) | DRG 743 ==
LOC: REC 05:12 → MS1 11:14
PROVIDERS: ADMIT Obstetrics & Gynecology; ATTEND Obstetrics & Gynecology
PROC: 0UB00ZX Excision of Right Ovary, Open Approach, Diagnostic (ICD-10-PCS; 2017-06-01)
PROC: 0UN00ZZ Release Right Ovary, Open Approach (ICD-10-PCS; 2017-06-01)
PROC: 0DNW0ZZ Release Peritoneum, Open Approach (ICD-10-PCS; 2017-06-01)
PROC: 0DNU0ZZ Release Omentum, Open Approach (ICD-10-PCS; 2017-06-01)
PROC: 0U5B0ZZ Destruction of Endometrium, Open Approach (ICD-10-PCS; 2017-06-01)
PROC: 0UT90ZZ Resection of Uterus, Open Approach (ICD-10-PCS; principal; 2017-06-01 07:30)
DX: N80.3 Endometriosis of pelvic peritoneum (principal); K66.0 Peritoneal adhesions (postprocedural) (postinfection); R10.2 Pelvic and perineal pain; N80.0 Endometriosis of uterus; N80.8 Other endometriosis; Q51.3 Bicornate uterus; N73.6 Female pelvic peritoneal adhesions (postinfective)
CPT/HCPCS: 80051; 82565; 84520; 84703; 85025; 86850; 86900; 86901; 86920; 87086; 88305; 93005; J0690; J1100; J1170; J1885; J2175; J2250; J2274; J2310; J2405; J2710; J3010; J7120

== ENCOUNTER 2017-06-22 14:32 | Inpatient (IN) | payer OTHER ==
[~2017-06-22] VITALS: Ht 160 cm; Wt 65.0 kg
[2017-06-22] MEDS ORDERED: SODIUM CHLORIDE 0.9% 1L BAG IV* STA ×3 (14:49→19:08)
--- NOTE | 2017-06-22 14:49 | ERD ---
ER Documentation Chief Complaint Chief Complaint had uterus and fallopian tubes removed on 06/01, pelvic pain today HPI 31-year-old female, presents to the emergency department brought in by her complaining of sudden onset of severe pelvic pain since this morning , the pain is described as deep, tearing, 10. The patient is status post total abdominal hysterectomy on June 01/2017 due to severe endometriosis. The patient was in her usual state of health until this morning when she started complaining of severe pelvic pain. She has had postop visits and according to the patient her post op course has been uneventful. The patient denies fever chills, however she was found febrile here in the ER, she is complaining of mild yellowish vaginal discharge. No diarrhea, no constipation, no dysuria. Denies dizziness, palpitations, no respiratory symptoms ROS SYSTEMIC symptoms: no fever, chills, no night sweats, no weight loss EYE symptoms: No blurred vision, no eye discharge OTOLARYNGEAL symptoms: No hearing loss. No ear pain, no sore throat CARDIOVASCULAR symptoms: No chest pain or discomfort, no palpitations. PULMONARY symptoms: No dyspnea, no cough, no wheezing. GASTROINTESTINAL symptoms: + abdominal pain, no nausea, no vomiting, no diarrhea MUSCULOSKELETAL symptoms: No arthralgias, no muscle aches. NEUROLOGY symptoms: No confusion, no syncope, no numbness or tingling. SKIN: No rashes Allergies Allergies: Coded Allergies: No Known Allergy (Unverified , 06/01/17) PMhx/Soc History of Surgery: Yes (ECTOPIC /BILATERL SALPINGECTOMY) Anesthesia Reaction: No Hx Neurological Disorder: No Hx Respiratory Disorders: No Hx Cardiac Disorders: No Hx Psychiatric Problems: No Hx Miscellaneous Medical Probl: No Hx Alcohol Use: No Hx Substance Use: No Hx Tobacco Use: No Physical Exam Vitals Vital Signs Date Time Temp Pulse Resp B/P Pulse Ox O2 Delivery O2 Flow Rate FiO2 06/22/17 16:29 99.5 90 18 106/72 99 Room Air 06/22/17 14:35 102.4 144 20 163/105 98 Physical Exam Patient is distress due to severe pain, vital signs showed fever, tachycardia, elevated blood pressure, however the patient is Alert and fully oriented. EYES: PERRLA, EOMI, Sclera and conjunctiva appear normal. EARS: Canals clear, tympanic membranes WNL THROAT: Normal oropharynx. NECK: Supple, No lymphadenopathy. Full ROM without pain or tenderness. HEART: RRR, no rubs, murmurs, clicks or gallops. LUNGS: Clear to auscultation. ABDOMEN: Guarded, tender to palpation PELVIC: Bimanual exam: normal external exam, normothermic vagina, no vaginal discharge, no foul smelling. Pelvic tenderness. EXTREMITIES: No edema bilaterally. BACK: Full ROM, no deformity, normal back exam NEURO: Cranial nerves grossly intact, no motor or sensory deficit Result Diagram: 06/22/17 1505 06/22/17 1505 Results 24 hrs Laboratory Tests Test 06/22/17 15:05 06/22/17 17:30 06/22/17 17:32 White Blood Count 18.010^3/ul Red Blood Count 4.2910^6/ul Hemoglobin 13.0g/dl Hematocrit 37.4% Mean Corpuscular Volume 87.2fl Mean Corpuscular Hemoglobin 30.3pg Mean Corpuscular Hemoglobin Concent 34.8g/dl Red Cell Distribution Width 12.0% Platelet Count 22947^3/UL Mean Platelet Volume 10.0fl Neutrophils % 85.4% Lymphocytes % 7.6% Monocytes % 6.3% Eosinophils % 0.1% Basophils % 0.3% Nucleated Red Blood Cells % 0.0/100WBC Neutrophils # 15.410^3/ul Lymphocytes # 1.410^3/ul Monocytes # 1.110^3/ul Eosinophils # 0.010^3/ul Basophils # 0.110^3/ul Nucleated Red Blood Cells # 0.010^3/ul Prothrombin Time 13.1Sec Prothrombin Time Ratio 1.0 INR International Normalized Ratio 0.99 Activated Partial Thromboplast Time 30.7Sec Sodium Level 139mmol/L Potassium Level 3.9mmol/L Chloride Level 100mmol/L Carbon Dioxide Level 25mmol/L Anion Gap 18 Blood Urea Nitrogen 11mg/dl Creatinine 0.75mg/dl Glucose Level 116mg/dl Lactic Acid Level 1.3mmol/L Calcium Level 9.5mg/dl Total Bilirubin 0.7mg/dl Direct Bilirubin 0.00mg/dl Indirect Bilirubin 0.7mg/dl Aspartate Amino Transf (AST/SGOT) 22IU/L Alanine Aminotransferase (ALT/SGPT) 32IU/L Alkaline Phosphatase 108IU/L Total Protein 8.4g/dl Albumin 4.8g/dl Globulin 3.60g/dl Albumin/Globulin Ratio 1.33 Urine Color YELLOW Urine Clarity CLEAR Urine pH 6.0 Urine Specific [place] 1.014 Urine Ketones NEGATIVEmg/dL Urine Nitrite NEGATIVEmg/dL Urine Bilirubin NEGATIVEmg/dL Urine Urobilinogen NEGATIVEmg/dL Urine Leukocyte Esterase NEGATIVELeu/ul Urine Microscopic RBC 4/HPF Urine Microscopic WBC 3/HPF Urine Squamous Epithelial Cells FEW/HPF Urine Bacteria FEW/HPF Urine Mucus FEW/HPF Urine Hemoglobin 2+mg/dL Urine Glucose NEGATIVEmg/dL Urine Total Protein NEGATIVEmg/dl Bedside Urine pH (LAB) 7.0 Bedside Urine Protein (LAB) Negative Bedside Urine Glucose (UA) Negative Bedside Urine Ketones (LAB) Negative Bedside Urine Blood 2+ Bedside Urine Nitrite (LAB) Negative Bedside Urine Leukocyte Esterase (L Negative Current Medications Medications (Trade) Dose Ordered Sig/Artemio Route PRN Reason Start Time Stop Time Status Last Admin Dose Admin Sodium Chloride (NS) 2,000 ml BOLUS OVER 2 HOURS STAT IV* 06/22/17 14:49 06/22/17 14:54 DC Sodium Chloride (NS) 2,000 ml BOLUS OVER 2 HOURS STAT IV* 06/22/17 14:49 06/22/17 14:54 DC 06/22/17 15:07 Morphine Sulfate (morphine) 4 mg ONCE STAT IV 06/22/17 14:58 06/22/17 14:59 DC 06/22/17 15:07 Ketorolac Tromethamine (Toradol) 30 mg ONCE STAT IV 06/22/17 15:09 06/22/17 15:10 DC 06/22/17 15:27 Hydromorphone HCl (Dilaudid) 2 mg ONCE STAT IV 06/22/17 15:09 06/22/17 15:10 DC 06/22/17 15:27 Ondansetron HCl (Zofran Inj) 4 mg ONCE STAT IV 06/22/17 15:10 06/22/17 15:11 DC 06/22/17 15:27 Ondansetron HCl (Zofran Inj) 4 mg ONCE STAT IV 06/22/17 15:24 06/22/17 15:25 DC 06/22/17 15:27 Acetaminophen/ Hydrocodone Bitart ([place] (5/325)) 2 tab ONCE ONCE PO 06/22/17 18:00 06/22/17 18:01 DC 06/22/17 18:00 Sodium Chloride 2000 ml 2,000 ml BOLUS OVER 2 HOURS STAT IV* 06/22/17 19:08 06/22/17 19:09 DC 06/22/17 19:33 Piperacillin Sod/ Tazobactam Sod (Zosyn 3.375gm/ 50 ml (Pmx)) 50 ml @ 100 mls/hr ONCE STAT IVPB 06/22/17 19:08 06/22/17 19:37 DC 06/22/17 19:32 Ondansetron HCl (Zofran Inj) 4 mg BRIDGE ORDER PRN IV NAUSEA AND/OR VOMITING 06/22/17 19:30 06/23/17 19:29 Acetaminophen 650 mg 650 mg ER BRIDGE PRN PO MILD PAIN/FEVER 06/22/17 19:30 06/23/17 19:29 Dextrose/Lactated Ringer's (D5-Lr) 1,000 ml @ 125 mls/hr Q8H ONCE IV 06/22/17 19:09 06/23/17 03:08 [place] [id number] Radiology Main Line: [phone] DIAGNOSTIC IMAGING REPORT Patient: RUCHI GANNON : 1985 Age: 31 Sex: F MR #: [id number] DOS: 06/22/17 1449 Ordering MD: TERELL ALCALA MD Location: E Room/Bed: PROCEDURE: CT Abdomen and Pelvis without contrast. CLINICAL INDICATION: Possible sepsis. History of ectopic . Bilateral salpingectomy. TECHNIQUE: CT scan of the abdomen and pelvis without contrast was performed on a multidetector high-resolution CT scanner. The patient was scanned without intravenous contrast. Coronal and sagittal reformatted images were obtained from the axial source images. Images were reviewed on a high-resolution PACS workstation. The total exam CTDI equals 14.42 mGy and the total exam DLP equals 354.03 mGy-cm. One or more of the following dose reduction techniques were used: - Automated exposure control. - Adjustment of the mA and/or kV according to patient size. - Use of iterative reconstruction technique. COMPARISON: CT abdomen/pelvis 03/29/2017 FINDINGS: A 5 mm pulmonary nodule or focal scarring within the lingula appear stable ( series 3, image 14). The lung bases are otherwise clear. The partially imaged heart appears normal in size. There is no evidence of pericardial effusion or thickening at the levels scanned. The liver is normal in size, morphology, and attenuation. There is no evidence of solid pelvic mass or intrahepatic biliary duct dilatation. The gallbladder is unremarkable. The spleen, pancreas, and bilateral adrenal glands are unremarkable. The kidneys are normal and symmetric in size, morphology, and attenuation. There is no hydronephrosis or hydroureter. No radiopaque nephrolithiasis or ureterolithiasis is seen. No perirenal collection is identified. The stomach, small bowel, and large bowel, as visualized, are grossly unremarkable. There is no evidence of bowel obstruction or focal bowel wall thickening. The previously identified appendix is not currently identified and may be surgically absent. There is trace high attenuation fluid scattered in the pelvis (series 3, image 138). The uterus and bilateral ovaries are not clearly seen, consistent with reported history of surgery. There is diffuse fat stranding/inflammation/edema within the lower pelvis and adjacent to the sigmoid colon, possibly represent postsurgical change. There is no evidence of discrete organized fluid collection. No free air is identified. The lower thoracic and abdominal aorta is normal in course and caliber. There are increased number of scattered sub-centimeter mesenteric and pelvic lymph nodes, likely reactive in etiology. The unenhanced urinary bladder demonstrates mild wall thickening anteriorly and there is mild fat stranding in the prevesical space, also likely postsurgical in etiology. Linear surgical scar and subcutaneous fat stranding/edema is noted in the lower ventral abdomen. Multiple pelvic phleboliths are noted. The osseous structures are unremarkable. No suspicious osteolytic or osteoblastic lesion is detected. IMPRESSION: 1. New postsurgical changes of interval hysterectomy and bilateral salpingo- oophorectomy, as described above. There is a small amount of high attenuation fluid scattered in the pelvis and inflammatory changes noted within the lower pelvis and adjacent to the distal sigmoid colon, likely postsurgical in etiology. No discrete organized fluid collection is identified. No free air is seen. 2. Although clearly identified on the previous study, the appendix is not seen on the current study and may have been removed at the time of hysterectomy and bilateral salpingo-oophorectomy. Correlate with operative report. 3. Mild focal anterior bladder wall thickening and fat stranding in the prevesical space is presumably related to recent surgery. 4. Increased number of sub centimeter mesenteric and pelvic lymph node, presumably reactive in etiology. 5. A 5 mm pulmonary nodule or focal scarring in the lingula appear stable compared to prior study. RPTAT: [facility] Shauna Angela Physician Date Time Electronically viewed and signed by Shauna Angela Physician on 06/22/2017 16: 23 RC/ CC: TERELL ALCALA MD Procedures/MDM 31y/o female patient with a history of severe endometriosis status post BALJIT 20 days ago, presents to the ED c/o sudden onset of severe abdominal pain for 6 hours approximately. Vital signs showed patient febrile, tachycardic, with elevated blood pressure most likely secondary to pain, Physical exam revealed tender abdomen with questionable peritoneal signs. Differential diagnosis include but not limited to: Intra-abdominal bleeding, abscess, septic phlebitis , UTI, appendicitis, colitis, kidney stones, recurrent endometriosis. Pertinent Data: Labs: CBC: Showed leukocytosis WBC 18, CMP: normal kidney and liver function, normal electrolytes. Lactic acid: 1.3 Radiology: CT abdomen and pelvis: IMPRESSION: 1. New postsurgical changes of interval hysterectomy and bilateral salpingo- oophorectomy, as described above. There is a small amount of high attenuation fluid scattered in the pelvis and inflammatory changes noted within the lower pelvis and adjacent to the distal sigmoid colon, likely postsurgical in etiology. No discrete organized fluid collection is identified. No free air is seen. 2. Although clearly identified on the previous study, the appendix is not seen on the current study and may have been removed at the time of hysterectomy and bilateral salpingo-oophorectomy. Correlate with operative report. 3. Mild focal anterior bladder wall thickening and fat stranding in the prevesical space is presumably related to recent surgery. 4. Increased number of sub centimeter mesenteric and pelvic lymph node, presumably reactive in etiology. 5. A 5 mm pulmonary nodule or focal scarring in the lingula appear stable compared to prior study. Physical examination and clinical presentation consistent most likely with intractable Pelvic pain, fever and leukocytosis without a clear source of infection, concerning due to postop status. During the ED course the patient received treatment with aggressive IV fluids, morphine, Toradol, Dilaudid, Zofran presenting temporary improvement of the pain , fever and tachycardia resolved. Case discussed with Dr.Veronica Jimenez who is requesting the patient to be admitted and evaluated by laborist vision teacher. Dr. Aldridge accepted the admission. Results and clinical impression discussed with the patient who agrees with management. The patient is stable to be admitted in med-surg. Instructions explained and given to patient in Yoruba with acknowledgment and demonstrated understanding. Disclaimer: Inadvertent spelling and grammatical errors are likely due to EHR/ dictation software use and do not reflect on the overall quality of patient care. Also, please note that the electronic time recorded on this note does not necessarily reflect the actual time of the patient encounter. Departure Diagnosis: Primary Impression: Intractable pain Additional Impressions: Leukocytosis Fever Condition: Stable TERELL ALCALA MD Jun 22, 2017 14:49
[2017-06-22] MEDS ORDERED: morphine 4 MG/ML VIAL IV STA (14:58)
[2017-06-22] MEDS ORDERED: KETOROLAC 30 MG INJ IV STA (15:09)
[2017-06-22] MEDS ORDERED: HYDROmorphONE 2 MG/ML SYG IV STA (15:09)
[2017-06-22] MEDS ORDERED: ONDANSETRON 4 MG INJ IV STA ×2 (15:10→15:24)
[2017-06-22 15:30] LABS: BASOPHIL # 0.1 10^3/ul (0.0-0.1); BASOPHILS % 0.3 % (0.0-2.0); EOSINOPHILS % 0.1 % (0.0-7.0); HEMATOCRIT 37.4 % (37.0-47.0); LYMPHOCYTES # 1.4 10^3/ul (0.8-2.9); LYMPHOCYTES % 7.6 % (15.0-51.0); MEAN CORPUSCULAR HEMOGLOBIN 30.3 pg (29.0-33.0); MEAN CORPUSCULAR HGB CONC 34.8 g/dl (32.0-37.0); MEAN CORPUSCULAR VOLUME 87.2 fl (82.0-101.0); MONOCYTE # 1.1 10^3/ul (0.3-0.9); MONOCYTES % 6.3 % (0.0-11.0); NEUTROPHIL # 15.4 10^3/ul (1.6-7.5); NEUTROPHILS % 85.4 % (39.0-77.0); PLATELET COUNT 293 10^3/UL (140-415); RED BLOOD COUNT 4.29 10^6/ul (4.20-5.40)
[2017-06-22 15:47] LABS: INR 0.99; PROTIME 13.1 Sec (12.2-14.2)
[2017-06-22 15:48] LABS: PARTIAL THROMBOPLASTIN TIME 30.7 Sec (25.0-35.0)
[2017-06-22 15:50] LABS: ALBUMIN 4.8 g/dl (3.3-4.9); ALBUMIN/GLOBULIN RATIO 1.33; BILIRUBIN,INDIRECT 0.7 mg/dl (0-1.1); BILIRUBIN,TOTAL 0.7 mg/dl (0.2-1.3); CALCIUM 9.5 mg/dl (8.4-10.2); CREATININE 0.75 mg/dl (0.44-1.00); POTASSIUM 3.9 mmol/L (3.5-5.1); TOTAL PROTEIN 8.4 g/dl (6.1-8.1)
--- NOTE | 2017-06-22 16:24 | RADRPT ---
PROCEDURE: CT Abdomen and Pelvis without contrast. CLINICAL INDICATION: Possible sepsis. History of ectopic . Bilateral salpingectomy. TECHNIQUE: CT scan of the abdomen and pelvis without contrast was performed on a multidetector hig h-resolution CT scanner. The patient was scanned without intravenous contrast. Coronal and sagittal reformatted images were obtained from the axial source images. Images were reviewed on a high-resol [employer] PACS workstation. The total exam CTDI equals 14.42 mGy and the total exam DLP equals 354.03 mG y-cm. One or more of the following dose reduction techniques were used: - Automated exposure control. - Adjustment of the mA and/or kV according to patient size. - Use of iterative reconstruction technique. COMPARISON: CT abdomen/pelvis 03/29/2017 FINDINGS: A 5 mm pulmonary nodule or focal scarring within the lingula appear stable (series 3, image 14). The lung bases are otherwise clear. The partially imaged heart appears normal in size. There is no evid ence of pericardial effusion or thickening at the levels scanned. The liver is normal in size, morphology, and attenuation. There is no evidence of solid pelvic mass or intrahepatic biliary duct dilatation. The gallbladder is unremarkable. The spleen, pancreas, and bilateral adrenal glands are unremarkable. The kidneys are normal and symmetric in size, morphology, and attenuation. There is no hydronephrosi s or hydroureter. No radiopaque nephrolithiasis or ureterolithiasis is seen. No perirenal collection is identified. The stomach, small bowel, and large bowel, as visualized, are grossly unremarkable. There is no evid ence of bowel obstruction or focal bowel wall thickening. The previously identified appendix is not currently identified and may be surgically absent. There is trace high attenuation fluid scattered i n the pelvis (series 3, image 138). The uterus and bilateral ovaries are not clearly seen, consisten t with reported history of surgery. There is diffuse fat stranding/inflammation/edema within the low er pelvis and adjacent to the sigmoid colon, possibly represent postsurgical change. There is no brice dence of discrete organized fluid collection. No free air is identified. The lower thoracic and abdominal aorta is normal in course and caliber. There are increased number o f scattered sub-centimeter mesenteric and pelvic lymph nodes, likely reactive in etiology. The unenhanced urinary bladder demonstrates mild wall thickening anteriorly and there is mild fat st randing in the prevesical space, also likely postsurgical in etiology. Linear surgical scar and subc utaneous fat stranding/edema is noted in the lower ventral abdomen. Multiple pelvic phleboliths are noted. The osseous structures are unremarkable. No suspicious osteolytic or osteoblastic lesion is detected . IMPRESSION: 1. New postsurgical changes of interval hysterectomy and bilateral salpingo-oophorectomy, as describ ed above. There is a small amount of high attenuation fluid scattered in the pelvis and inflammatory changes noted within the lower pelvis and adjacent to the distal sigmoid colon, likely postsurgical in etiology. No discrete organized fluid collection is identified. No free air is seen. 2. Although clearly identified on the previous study, the appendix is not seen on the current study and may have been removed at the time of hysterectomy and bilateral salpingo-oophorectomy. Correlate with operative report. 3. Mild focal anterior bladder wall thickening and fat stranding in the prevesical space is presumab ly related to recent surgery. 4. Increased number of sub centimeter mesenteric and pelvic lymph node, presumably reactive in etiol ogy. 5. A 5 mm pulmonary nodule or focal scarring in the lingula appear stable compared to prior study. RPTAT: [facility] Physician Pamella Date Time Electronically viewed and signed by Physician Pamella on 06/22/2017 16:23 /
[2017-06-22 17:33] LABS: URINE BLOOD (Dip) POC 2+ (NEGATIVE)
[2017-06-22 17:50] LABS: ADD UMIC YES; UR ASCORBIC ACID NEGATIVE (NEGATIVE); UR BACTERIA FEW /HPF (NONE SEEN); UR BILIRUBIN (Dip) NEGATIVE (NEGATIVE); UR BLOOD (Dip) 2+ mg/dL (NEGATIVE); UR CLARITY CLEAR (CLEAR); UR COLOR YELLOW (YELLOW); UR GLUCOSE (Dip) NEGATIVE (NEGATIVE); UR KETONES (Dip) NEGATIVE (NEGATIVE); UR LEUKOCYTE ESTERASE (Dip) NEGATIVE Leu/ul (NEGATIVE); UR MUCUS FEW /HPF (NONE SEEN); UR NITRITE (Dip) NEGATIVE (NEGATIVE); UR RBC 4 /HPF (0-5); UR SPECIFIC GRAVITY (Dip) 1.014 (1.003-1.030); UR SQUAMOUS EPITHELIAL CELL FEW /HPF (FEW); UR TOTAL PROTEIN (Dip) NEGATIVE (NEGATIVE); UR UROBILINOGEN (Dip) NEGATIVE (NEGATIVE)
[2017-06-22] MEDS ORDERED: HYDROCODONE/APAP (5/325) TAB PO ONE (18:00)
[2017-06-22] MEDS ORDERED: PIPER-TAZO 3.375 GM IV (PMX) 50 ML IVPB STA (19:08)
[2017-06-22] MEDS ORDERED: DEXTROSE 5%-LR 1,000 ML IV ONE (19:09)
[2017-06-22] MEDS ORDERED: ONDANSETRON 4 MG INJ IV PRN (19:30)
[2017-06-22] MEDS ORDERED: ACETAMINOPHEN 325 MG TAB PO PRN (19:30)
[2017-06-22 20:24] VITALS: PULSE 82; TEMP 98.6
[2017-06-22 21:20] VITALS: BP 110/82; RESP 19
--- NOTE | 2017-06-22 21:44 | HP ---
Date/Time of Note Date/Time of Note DATE: 06/22/17 TIME: 21:36 Assessment/Plan VTE Prophylaxis VTE Prophylaxis Intervention: ambulation Assessment/Plan Chief Complaint/Hosp Course Abdominal pain/ Pelvic pain, post BALJIT. Bilateral oophorectomy for severe pelvic endometriosis, Sudden onset of abdominal pain, gradually worsened CT of the abdomen and pelvis, no clear evidence of abscess but there is some fluid and stranding around the omentum and colon consistent with inflammatory process Fever and elevated white count with shift to the left. Consistent with pelvic infection Patient will be admitted to MedSurg unit Starting on broad-spectrum antibiotics, Zosyn CBC, blood culture, urine culture requested Pain control Discussed clinical exam and findings with Dr. Perez. General surgery and consulted,. r/o bowel injury. Recommended to have CT of the abdomen and Pelvis with IV/ PO and rectal contrast and continue the same management,. will see the paitent tomorrow. Problems: HPI/ROS Admit Date/Time Admit Date/Time Jun 22, 2017 at 19:09 Hx of Present Illness 31-year-old status post BALJIT and BSO for severe endometriosis 21 days ago by , presented to emergency room due to lower abdominal pain started this morning that gradually increased and worsened. She also reported fever of 102, sweating. Patient had a known history of endometriosis. Status post laparoscopic surgery for endometriosis and USO couple of years ago. 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 She also had a history of ectopic in the past status post unilateral salpingectomy. Had been on Lupron shots monthly for about a year due to constant persistent pelvic pain symptoms cannulated for hysterectomy and bilateral salpingo- oophorectomy. Per patient had no complaints and was recovering well until today the symptoms started. She denied any abnormal vaginal discharge. 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 Conceived after 4 years spontaneously without any medication. History of ectopic 4 years ago, status post laparoscopic unilateral salpingectomy Status post laparoscopic procedure for removal of endometriosis as well as contralateral tube Was on Lupron shot every month for 1 year with no improvement of symptoms. Status post BALJIT and bilateral oophorectomy About 21 days ago , was told that has severe intestinal endometriosis Past Surgical History Past surgical history: Status post 1 status post laparoscopic surgery with salpingectomy due to ectopic last year As post unilateral salpingectomy and surgery for endometriosis Status post BALJIT and bilateral oophorectomy for severe pelvic endometriosis Family History Significant Family History: other (Mother with hypertension, diabetes and elevated cholesterol, father with diabetes) Social History Alcohol Use: none Smoking Status: Never smoker Drug Use: none, other ( and stable relationship with one partner) Exam/Review of Systems Vital Signs Vitals Vital Signs Date Time Temp Pulse Resp B/P Pulse Ox O2 Delivery O2 Flow Rate FiO2 06/22/17 20:24 98.6 82 22 103/70 Room Air 06/22/17 16:29 99 Exam Constitutional: alert, distress, oriented, other (Patient in acute distress due to pain) Psych: anxiety, other (Tearful due to pain) Head: atraumatic, normocephalic Eyes: EOMI, nl conjunctiva ENMT: nl external ears & nose Neck: supple Respiratory: clear to auscultation, normal air movement Cardiovascular: nl pulses, regular rate and rhythm Gastrointestinal: distended, other (Abdominal distention rigidity, rebound tenderness. Tenderness in the lower abdomen both in right and left up to the umbilicus noted), rebound or guarding (Speculum examination: Sutures related to recent surgery noted at the vaginal cuff. No evidence of erythema or abnormal discharge or cough abscess, hematoma or cellulitis noted bimanual examination there is fullness. In the vaginal fornix tender to palpation. exam limited due to abdominal tenderness. ) Extremities: normal pulses Neurological: BLUEPRINT READER II-XII intact, nl mental status Skin: nl turgor, rash or lesions Lymph: nl lymph nodes Labs Result Diagram: 06/22/17 1505 06/22/17 1505 Medications Medications Current Medications Dextrose/Lactated Ringer's (D5-Lr) 1,000 ml @ 125 mls/hr Q8H ONCE IV ; Start 06/22/17 at 19:09; Stop 11/23/17 at 03:08 OCTAVIA HERNANDEZ MD Jun 22, 2017 21:44
[2017-06-22] MEDS: HYDROmorphONE 1 MG/ML SYG IV PRN (21:48)
[2017-06-22] MEDS: DEXTROSE 5%-LR 1,000 ML IV SCH (22:06)
[2017-06-22 22:30] LABS: BASOPHILS % 0.3 % (0.0-2.0); EOSINOPHILS % 0.3 % (0.0-7.0); HEMATOCRIT 31.4 % (37.0-47.0); HEMOGLOBIN 10.8 g/dl (12.0-16.0); LYMPHOCYTES % 16.8 % (15.0-51.0); MEAN CORPUSCULAR HEMOGLOBIN 30.6 pg (29.0-33.0); MEAN CORPUSCULAR HGB CONC 34.4 g/dl (32.0-37.0); MEAN PLATELET VOLUME 9.9 fl (7.4-10.4); MONOCYTES % 8.5 % (0.0-11.0); NEUTROPHILS % 73.8 % (39.0-77.0); PLATELET COUNT 222 10^3/UL (140-415); RED BLOOD COUNT 3.53 10^6/ul (4.20-5.40); RED CELL DISTRIBUTION WIDTH 12.3 % (11.5-14.5); WHITE BLOOD COUNT 12.2 10^3/ul (4.8-10.8)
[2017-06-22] MEDS ORDERED: BARIUM SULF 2% 450 ML BTL (BERRY SMOOTHIE) PO ONE (22:30)
[2017-06-22 22:50] LABS: ALBUMIN 3.5 g/dl (3.3-4.9); ALBUMIN/GLOBULIN RATIO 1.16; CALCIUM 8.5 mg/dl (8.4-10.2); CREATININE 0.6 mg/dl (0.44-1.00); POTASSIUM 4.1 mmol/L (3.5-5.1); TOTAL PROTEIN 6.5 g/dl (6.1-8.1)
[2017-06-23] MEDS: ONDANSETRON 4 MG INJ IV PRN ×4 (00:29→20:21)
[2017-06-23] MEDS: PIPER-TAZO 3.375 GM IV (PMX) 50 ML IVPB SCH ×5 (00:33→23:46)
[2017-06-23] MEDS: HYDROmorphONE 1 MG/ML SYG IV PRN ×8 (00:34→22:48)
[2017-06-23 01:48] VITALS: Ht 160 cm; Wt 65.0 kg
[2017-06-23 02:17] VITALS: BP 99/55; RESP 19
[2017-06-23] MEDS: DEXTROSE 5%-LR 1,000 ML IV SCH ×3 (06:19→20:20)
[2017-06-23 07:35] VITALS: BP 104/68; RESP 18
--- NOTE | 2017-06-23 10:07 | CONS ---
Date/Time of Note Date/Time of Note DATE: 06/23/17 TIME: 10:02 Assessment/Plan Assessment/Plan Additional Assessment/Plan The patient's white count has come down, and there is no left shift. The patient is symptomatically improved and her abdominal examination is benign. Awaiting CT scan. The patient is anxious to go home. Further recommendations will be forthcoming following completion of the CT scan. Consultation Date/Type/Reason Admit Date/Time Jun 22, 2017 at 19:09 Date of Consultation: Jun 23, 2017 Reason for Consultation Abdominal pain post hysterectomy Hx of Present Illness The patient is a 31-year-old female who is 22 days status post BALJIT and BSO. The procedure went uneventfully. The patient was doing well until yesterday when she developed 102 fever and vague abdominal pain. Her admitting white count was 18,000, and the CT scan showed postsurgical changes. Her pain scale on admission was 10, and it has come down to 2 this morning. She states that she feels much improved. A CT scan of the abdomen and pelvis with oral rectal and IV contrast is pending. Constitutional: no complaints Eyes: no complaints ENT: no complaints Respiratory: no complaints Cardiovascular: no complaints Gastrointestinal: pain Genitourinary: no complaints Musculoskeletal: no complaints Skin: no complaints Neurologic: no complaints Endocrine: no complaints Lymphatic: no complaints Psychological: no complaints Immunologic: no complaints Past Medical History Medical History: other (History of endometriosis) Past Surgical History Past Surgical Hx: other (BALJIT/BSO) Family History Significant Family History: no pertinent family hx Social History Alcohol Use: none Smoking Status: Never smoker Drug Use: none, other ( and stable relationship with one partner) Exam/Review of Systems Vital Signs Vitals Vital Signs Date Time Temp Pulse Resp B/P Pulse Ox O2 Delivery O2 Flow Rate FiO2 06/23/17 07:35 98.8 85 18 104/68 98 06/22/17 20:24 Room Air Intake and Output 06/22/17 06/22/17 06/23/17 14:59 22:59 06:59 Intake Total 1200 ml Balance 1200 ml Exam Constitutional: alert, oriented Head: normocephalic Eyes: nl conjunctiva ENMT: nl external ears & nose Neck: supple Respiratory: clear to auscultation Cardiovascular: regular rate and rhythm Gastrointestinal: other (There is a well-healed Pfannenstiel scar without evidence of cellulitis. There are no abdominal masses.), soft Musculoskeletal: nl extremities to inspection Extremities: normal pulses Neurological: CAN CRIMPER II-XII intact Skin: nl turgor Lymph: nl lymph nodes Results Result Diagram: 06/22/17220106/22/172202 Results 24 hrs Laboratory Tests Test 06/22/17 15:05 06/22/17 17:30 06/22/17 17:32 06/22/17 19:25 White Blood Count 18.0 #H Red Blood Count 4.29 Hemoglobin 13.0 # Hematocrit 37.4 Mean Corpuscular Volume 87.2 Mean Corpuscular Hemoglobin 30.3 Mean Corpuscular Hemoglobin Concent 34.8 Red Cell Distribution Width 12.0 Platelet Count 293 # Mean Platelet Volume 10.0 Neutrophils % 85.4 H Lymphocytes % 7.6 L Monocytes % 6.3 Eosinophils % 0.1 Basophils % 0.3 Nucleated Red Blood Cells % 0.0 Neutrophils # 15.4 H Lymphocytes # 1.4 Monocytes # 1.1 H Eosinophils # 0.0 Basophils # 0.1 Nucleated Red Blood Cells # 0.0 Prothrombin Time 13.1 Prothrombin Time Ratio 1.0 INR International Normalized Ratio 0.99 Activated Partial Thromboplast Time 30.7 Sodium Level 139 Potassium Level 3.9 Chloride Level 100 Carbon Dioxide Level 25 Anion Gap 18 H Blood Urea Nitrogen 11 Creatinine 0.75 Glucose Level 116 Lactic Acid Level 1.3 0.8 Calcium Level 9.5 Total Bilirubin 0.7 Direct Bilirubin 0.00 Indirect Bilirubin 0.7 Aspartate Amino Transf (AST/SGOT) 22 Alanine Aminotransferase (ALT/SGPT) 32 Alkaline Phosphatase 108 Total Protein 8.4 H Albumin 4.8 Globulin 3.60 H Albumin/Globulin Ratio 1.33 Urine Color YELLOW Urine Clarity CLEAR Urine pH 6.0 Urine Specific [place] 1.014 Urine Ketones NEGATIVE Urine Nitrite NEGATIVE Urine Bilirubin NEGATIVE Urine Urobilinogen NEGATIVE Urine Leukocyte Esterase NEGATIVE Urine Microscopic RBC 4 Urine Microscopic WBC 3 Urine Squamous Epithelial Cells FEW Urine Bacteria FEW A Urine Mucus FEW A Urine Hemoglobin 2+ H Urine Glucose NEGATIVE Urine Total Protein NEGATIVE Bedside Urine pH (LAB) 7.0 Bedside Urine Protein (LAB) Negative Bedside Urine Glucose (UA) Negative Bedside Urine Ketones (LAB) Negative Bedside Urine Blood 2+ H Bedside Urine Nitrite (LAB) Negative Bedside Urine Leukocyte Esterase (L Negative Test 06/22/17 22:02 06/22/17 22:03 White Blood Count 12.2 #H Red Blood Count 3.53 L Hemoglobin 10.8 L Hematocrit 31.4 L Mean Corpuscular Volume 89.0 Mean Corpuscular Hemoglobin 30.6 Mean Corpuscular Hemoglobin Concent 34.4 Red Cell Distribution Width 12.3 Platelet Count 222 # Mean Platelet Volume 9.9 Neutrophils % 73.8 Lymphocytes % 16.8 Monocytes % 8.5 Eosinophils % 0.3 Basophils % 0.3 Nucleated Red Blood Cells % 0.0 Neutrophils # 9.0 H Lymphocytes # 2.0 Monocytes # 1.0 H Eosinophils # 0.0 Basophils # 0.0 Nucleated Red Blood Cells # 0.0 Lactic Acid Level 0.8 Sodium Level 145 H Potassium Level 4.1 Chloride Level 111 H Carbon Dioxide Level 26 Anion Gap 12 Blood Urea Nitrogen 7 Creatinine 0.60 Glucose Level 110 Calcium Level 8.5 Total Bilirubin 1.0 Direct Bilirubin 0.00 Indirect Bilirubin 1.0 Aspartate Amino Transf (AST/SGOT) 19 Alanine Aminotransferase (ALT/SGPT) 33 Alkaline Phosphatase 79 Total Protein 6.5 # Albumin 3.5 # Globulin 3.00 Albumin/Globulin Ratio 1.16 Medications Medications Current Medications Hydromorphone HCl 1 mg 1 mg Q2 PRN IV pain Last administered on 06/23/17 07: 50; Admin Dose 1 MG; Start 06/22/17 at 21:30 Dextrose/Lactated Ringer's 1,000 ml @ 125 mls/hr Q8H IV Last administered on 06/23/17 06:19; Admin Dose 125 MLS/HR; Start 06/22/17 at 21:30 Piperacillin Sod/ Tazobactam Sod (Zosyn 3.375gm/ 50 ml (Pmx)) 50 ml @ 100 mls/ hr Q6 IVPB Last administered on 06/23/17 05:21; Admin Dose 100 MLS/HR; Start 06/23/17 at 00:00 Ondansetron HCl (Zofran Inj) 4 mg Q6H PRN IV NAUSEA AND/OR VOMITING Last administered on 06/23/17 07:50; Admin Dose 4 MG; Start 06/23/17 at 00:30 HOMER CAMP MD Jun 23, 2017 10:07
[2017-06-23] MEDS ORDERED: IOHEXOL 300MG/ML 30 ML BTL ONE ×2 (10:30→12:51)
[2017-06-23] MEDS ORDERED: SOD CHLORIDE 0.9% 100 ML ONE (12:51)
[2017-06-23] MEDS ORDERED: IOHEXOL 300MG/ML 150 ML BTL ONE (12:52)
[2017-06-23 14:00] VITALS: BP 148/100; RESP 22
--- NOTE | 2017-06-23 17:01 | QN ---
Documentation Comment 31-year-old status post BALJIT and BSO for severe endometriosis 21 days ago by her [employer] Dr Hancock. Presented to emergency room due to lower abdominal pain which started this morning and gradually increased and worsened. She also reported fever of 102, sweating. Patient had a known history of endometriosis. She had laparoscopic surgery for endometriosis and [facility] couple of years ago. 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 She also had a history of ectopic and unilateral salpingectomy. Was on Lupron shots monthly for about a year due to constant and persistent pelvic pain . She finally decided to undergo hysterectomy and bilateral salpingo- oophorectomy. Post op patient was doing well with no complaints and was recovering well until today . June 22, 2017 Hospital note This patient is 31 years old 2 para 1 who came to emergency room last night complaining of abdominal pain. There is short description of her condition by the admitting laborist: (31-year-old status post BALJIT and BSO for severe endometriosis 21 days ago by , presented to emergency room due to lower abdominal pain started this morning that gradually increased and worsened. She also reported fever of 102, sweating. Patient had a known history of endometriosis. Status post laparoscopic surgery for endometriosis and [facility] couple of years ago. 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 She also had a history of ectopic in the past status post unilateral salpingectomy. Had been on Lupron shots monthly for about a year due to constant persistent pelvic pain symptoms cannulated for hysterectomy and bilateral salpingo- oophorectomy. Per patient had no complaints and was recovering well until today the symptoms started. She denied any abnormal vaginal discharge). Her complaining mostly was abdominal discomfort she had a elevated temperature when she came to the emergency room however after a few hours she is afebrile. Laboratory Tests Test 06/22/17 17:30 06/22/17 17:32 06/22/17 19:25 06/22/17 22:02 Urine Color YELLOW Urine Clarity CLEAR Urine pH 6.0 Urine Specific [place] 1.014 Urine Ketones NEGATIVEmg/dL Urine Nitrite NEGATIVEmg/dL Urine Bilirubin NEGATIVEmg/dL Urine Urobilinogen NEGATIVEmg/dL Urine Leukocyte Esterase NEGATIVELeu/ul Urine Microscopic RBC 4/HPF Urine Microscopic WBC 3/HPF Urine Squamous Epithelial Cells FEW/HPF Urine Bacteria FEW/HPF Urine Mucus FEW/HPF Urine Hemoglobin 2+mg/dL Urine Glucose NEGATIVEmg/dL Urine Total Protein NEGATIVEmg/dl Bedside Urine pH (LAB) 7.0 Bedside Urine Protein (LAB) Negative Bedside Urine Glucose (UA) Negative Bedside Urine Ketones (LAB) Negative Bedside Urine Blood 2+ Bedside Urine Nitrite (LAB) Negative Bedside Urine Leukocyte Esterase (L Negative Lactic Acid Level 0.8mmol/L 0.8mmol/L White Blood Count 12.210^3/ul Red Blood Count 3.5310^6/ul Hemoglobin 10.8g/dl Hematocrit 31.4% Mean Corpuscular Volume 89.0fl Mean Corpuscular Hemoglobin 30.6pg Mean Corpuscular Hemoglobin Concent 34.4g/dl Red Cell Distribution Width 12.3% Platelet Count 44807^3/UL Mean Platelet Volume 9.9fl Neutrophils % 73.8% Lymphocytes % 16.8% Monocytes % 8.5% Eosinophils % 0.3% Basophils % 0.3% Nucleated Red Blood Cells % 0.0/100WBC Neutrophils # 9.010^3/ul Lymphocytes # 2.010^3/ul Monocytes # 1.010^3/ul Eosinophils # 0.010^3/ul Basophils # 0.010^3/ul Nucleated Red Blood Cells # 0.010^3/ul Test 06/22/17 22:03 Sodium Level 145mmol/L Potassium Level 4.1mmol/L Chloride Level 111mmol/L Carbon Dioxide Level 26mmol/L Anion Gap 12 Blood Urea Nitrogen 7mg/dl Creatinine 0.60mg/dl Glucose Level 110mg/dl Calcium Level 8.5mg/dl Total Bilirubin 1.0mg/dl Direct Bilirubin 0.00mg/dl Indirect Bilirubin 1.0mg/dl Aspartate Amino Transf (AST/SGOT) 19IU/L Alanine Aminotransferase (ALT/SGPT) 33IU/L Alkaline Phosphatase 79IU/L Total Protein 6.5g/dl Albumin 3.5g/dl Globulin 3.00g/dl Albumin/Globulin Ratio 1.16 Current Medications Medications (Trade) Dose Ordered Sig/Artemio Route PRN Reason Start Time Stop Time Status Last Admin Dose Admin Sodium Chloride (NS) 2,000 ml BOLUS OVER 2 HOURS STAT IV* 06/22/17 14:49 06/22/17 14:54 DC Sodium Chloride (NS) 2,000 ml BOLUS OVER 2 HOURS STAT IV* 06/22/17 14:49 06/22/17 14:54 DC 06/22/17 15:07 Morphine Sulfate (morphine) 4 mg ONCE STAT IV 06/22/17 14:58 06/22/17 14:59 DC 06/22/17 15:07 Ketorolac Tromethamine (Toradol) 30 mg ONCE STAT IV 06/22/17 15:09 06/22/17 15:10 DC 06/22/17 15:27 Hydromorphone HCl (Dilaudid) 2 mg ONCE STAT IV 06/22/17 15:09 06/22/17 15:10 DC 06/22/17 15:27 Ondansetron HCl (Zofran Inj) 4 mg ONCE STAT IV 06/22/17 15:10 06/22/17 15:11 DC 06/22/17 15:27 Ondansetron HCl (Zofran Inj) 4 mg ONCE STAT IV 06/22/17 15:24 06/22/17 15:25 DC 06/22/17 15:27 Acetaminophen/ Hydrocodone Bitart ([place] (5/325)) 2 tab ONCE ONCE PO 06/22/17 18:00 06/22/17 18:01 DC 06/22/17 18:00 Sodium Chloride 2000 ml 2,000 ml BOLUS OVER 2 HOURS STAT IV* 06/22/17 19:08 06/22/17 19:09 DC 06/22/17 19:33 Piperacillin Sod/ Tazobactam Sod (Zosyn 3.375gm/ 50 ml (Pmx)) 50 ml @ 100 mls/hr ONCE STAT IVPB 06/22/17 19:08 06/22/17 19:37 DC 06/22/17 19:32 Ondansetron HCl (Zofran Inj) 4 mg BRIDGE ORDER PRN IV NAUSEA AND/OR VOMITING 06/22/17 19:30 06/22/17 21:40 DC Acetaminophen 650 mg 650 mg ER BRIDGE PRN PO MILD PAIN/FEVER 06/22/17 19:30 06/22/17 21:40 DC Dextrose/Lactated Ringer's (D5-Lr) 1,000 ml @ 125 mls/hr Q8H ONCE IV 06/22/17 19:09 06/23/17 03:08 DC Hydromorphone HCl 1 mg 1 mg Q2 PRN IV pain 06/22/17 21:30 06/23/17 13:49 Dextrose/Lactated Ringer's 1,000 ml @ 125 mls/hr Q8H IV 06/22/17 21:30 06/23/17 06:19 Piperacillin Sod/ Tazobactam Sod (Zosyn 3.375gm/ 50 ml (Pmx)) 50 ml @ 100 mls/hr Q6 IVPB 06/23/17 00:00 06/23/17 11:58 Barium Sulfate (Readi-Cat 2 ( [employer] )) 900 ml GIVE PRIOR TO CT ONCE PO 06/22/17 22:30 06/22/17 22:31 DC Ondansetron HCl (Zofran Inj) 4 mg Q6H PRN IV NAUSEA AND/OR VOMITING 06/23/17 00:30 06/23/17 15:44 Iohexol (Omnipaque 300mg/ ml) 30 ml STK-MED ONCE .ROUTE 06/23/17 10:30 06/23/17 10:31 DC 06/23/17 11:24 IV Flush 10 ml 10 ml STK-MED ONCE .ROUTE 06/23/17 12:51 06/23/17 12:52 DC 06/23/17 13:25 Sodium Chloride (NS) 100 ml @ ud STK-MED ONCE .ROUTE 06/23/17 12:51 06/23/17 12:52 DC 06/23/17 13:25 Iohexol (Omnipaque 300mg/ ml) 30 ml STK-MED ONCE .ROUTE 06/23/17 12:51 06/23/17 12:52 DC 06/23/17 13:25 Iohexol (Omnipaque 300mg/ ml) 150 ml STK-MED ONCE .ROUTE 06/23/17 12:52 06/23/17 12:53 DC 06/23/17 13:25 When I examined her today she is more comfortable not much complaining of pain , abdomen slightly tender in the left lower quadrant but no rebound ,no CVA tenderness her chest is clear .no calf tenderness Her WBC was 18,000 on the first encounter however dropped quite a bit. She was seen by general surgeon. Who also believe that her condition is improving rapidly At this time we are waiting for the result of the abdominal and pelvic CAT scan with oral and rectal contrast material. In fact this patient is asking to go home because she no longer have any significant pain. However I mentioned that she could wait for this coming study result and the antibiotic ( Zosyn} should continue tomorrow and may be the day after and be discharged after complete recovery End of dictation .. . .. SYLVIE JONES MD Jun 23, 2017 17:01
[2017-06-23 20:00] VITALS: BP 123/58; RESP 20
--- NOTE | 2017-06-23 21:03 | RADRPT ---
PROCEDURE: CT abdomen and pelvis with IV contrast CLINICAL INDICATION: Leukocytosis and fever. Evaluate for bowel injury. TECHNIQUE: Abdomen and pelvis CT was performed on a high-resolution multidetector CT scanner follow ing the uncomplicated intravenous administration of 90 cc of Omnipaque 300, after ingestion of oral contrast, and after gentle instillation rectal contrast. Coronal reformatted images were obtained f rom the axial source images. The exam CTDI by series is 8.87 mGy, and the total exam DLP equals 500. 42 mGy-cm. DICOM images are available. One or more of the following dose reduction techniques were used: Automated exposure control. Adjustment of the mA and/or kV according to patient size. Use of iterative reconstruction technique. COMPARISON: Abdomen/pelvis CT 06/22/2017 FINDINGS: CT abdomen: No significant change in the small nodular opacity in the lingula; this is also stable in size when compared to the 08/29/[address] scan and thus likely is benign. Left liver lobe peripheral small slightly low attenuation area abutting the falciform ligament is no nspecific but likely represents focal fat versus perfusion anomaly. The liver is otherwise unremarka ble. The gallbladder, pancreas, spleen, adrenal glands, and right kidney are unremarkable. Minimal increase in size of the left kidney interpolar subcentimeter low attenuation finding when co mpared to the 08/29/[address] scan; this finding is too small to characterize but likely is a cyst. The stomach is not optimally distended and thus not optimally evaluated. No abnormally dilated smal l bowel loops seen. Small amount of right paracolic fluid has decreased in volume; new small amount of left pericolic fl uid. New hazy attenuation of pericolonic fat near the ascending colon. Minimal worsening of hazy mes entery. Probably no other significant change in small amount of mesenteric fluid. No significant change in size of soft tissue attenuation abnormality abutting the right external honey ac neurovascular bundle, right posterolateral bladder, and right side of the sigmoid colon. New thick-walled short segment of sigmoid colon in the pelvis; there is adjacent small amount of flu id, hazy mesentery, and adjacent fascial thickening/fluid. CT pelvis: The bladder is otherwise unremarkable. There is asymmetric enhancement of the iliofemoral venous system with decreased enhancement of the l eft iliofemoral venous system. No evidence of oral or rectal contrast material extravasation. No other significant interval changes identified, given the differences in the imaging techniques. IMPRESSION: 1. Small amount of right paracolic fluid has decreased in volume; new small amount of left pericoli c fluid. New hazy attenuation of pericolonic fat near the ascending colon, likely inflammatory. Mini mal worsening of hazy mesentery. No other significant change in small amount of mesenteric fluid. 2. No significant change in size of soft tissue attenuation abnormality abutting the right external iliac neurovascular bundle, right posterolateral bladder, and right side of the sigmoid colon; this could be secondary to complex fluid or blood products. 3. New thick-walled short segment of sigmoid colon in the pelvis; there is adjacent small amount of fluid, hazy mesentery, and adjacent fascial thickening/fluid. These findings may be secondary to in flammatory process, though other etiologies are possible including ischemia or injury. 4. Asymmetric enhancement of the iliofemoral venous system with decreased enhancement of the left i liofemoral venous system; this finding is not optimally assessed on this study and could be secondar y to differences and enhancement kinetics, but venous disease such as thrombosis is in the different ial diagnosis, especially given the history and other findings. Consider dedicated iliofemoral venou s imaging for further analysis. Report called to the nurse caring for the patient on 06/23/2017 at 2050 hours. RPTAT: TT Physician Yuly Date Time Electronically viewed and signed by Physician Yuly on 06/23/2017 21:02 ROLY/
[2017-06-24] MEDS: HYDROmorphONE 1 MG/ML SYG IV PRN ×11 (01:17→22:57)
[2017-06-24 02:00] VITALS: BP 100/61; RESP 18
[2017-06-24] MEDS: ONDANSETRON 4 MG INJ IV PRN ×4 (02:24→20:48)
[2017-06-24] MEDS: DEXTROSE 5%-LR 1,000 ML IV SCH ×3 (03:22→22:58)
[2017-06-24] MEDS: PIPER-TAZO 3.375 GM IV (PMX) 50 ML IVPB SCH ×4 (05:26→23:49)
[2017-06-24 05:52] LABS: BASOPHIL # 0.1 10^3/ul (0.0-0.1); BASOPHILS % 0.6 % (0.0-2.0); EOSINOPHILS # 0.3 10^3/ul (0.0-0.5); EOSINOPHILS % 3.9 % (0.0-7.0); HEMATOCRIT 28.2 % (37.0-47.0); HEMOGLOBIN 9.7 g/dl (12.0-16.0); LYMPHOCYTES # 2.6 10^3/ul (0.8-2.9); LYMPHOCYTES % 32.3 % (15.0-51.0); MEAN CORPUSCULAR HEMOGLOBIN 30.8 pg (29.0-33.0); MEAN CORPUSCULAR HGB CONC 34.4 g/dl (32.0-37.0); MEAN CORPUSCULAR VOLUME 89.5 fl (82.0-101.0); MEAN PLATELET VOLUME 10.3 fl (7.4-10.4); MONOCYTE # 0.8 10^3/ul (0.3-0.9); MONOCYTES % 9.4 % (0.0-11.0); NEUTROPHIL # 4.3 10^3/ul (1.6-7.5); NEUTROPHILS % 53.4 % (39.0-77.0); PLATELET COUNT 205 10^3/UL (140-415); RED BLOOD COUNT 3.15 10^6/ul (4.20-5.40); RED CELL DISTRIBUTION WIDTH 12.6 % (11.5-14.5); WHITE BLOOD COUNT 8.1 10^3/ul (4.8-10.8)
[2017-06-24 08:15] VITALS: BP 107/65; RESP 17
--- NOTE | 2017-06-24 11:23 | PN ---
Date/Time of Note Date/Time of Note DATE: 06/24/17 TIME: 11:21 Assessment/Plan Lines/Catheters IV Catheter Type (from [facility]): Peripheral IV Assessment/Plan Chief Complaint/Hosp Course The patient is a 31-year-old female who is 22 days status post BALJIT and BSO. The procedure went uneventfully. The patient was doing well until yesterday when she developed 102 fever and vague abdominal pain. Her admitting white count was 18,000, and the CT scan showed postsurgical changes. Her pain scale on admission was 10, and it has come down to 2 this morning. She states that she feels much improved. A CT scan of the abdomen and pelvis with oral rectal and IV contrast is pending. Problems: Assessment/Plan Clear liquid diet Awaiting Doppler study Continue IV antibiotics I have asked for hospitalist consult Subjective 24 Hr Interval Summary Fever and leukocytosis have resolved, however patient states that she has lower abdominal pain and did not tolerate her diet well last night CT findings for intra-abdominal pathology are soft. The suggestion of iliac thrombus will be evaluated by Doppler shortly Exam/Review of Systems Vital Signs Vitals Vital Signs Date Time Temp Pulse Resp B/P Pulse Ox O2 Delivery O2 Flow Rate FiO2 06/24/17 08:15 98.7 83 17 107/65 93 06/22/17 20:24 Room Air Intake and Output 06/23/17 06/23/17 06/24/17 14:59 22:59 06:59 Intake Total 1300 ml 1387.5 ml Output Total 1300 ml Balance 0 ml 1387.5 ml Results Result Diagram: 06/24/17 0442 06/22/17 2203 HOMER CAMP MD Jun 24, 2017 11:23
--- NOTE | 2017-06-24 12:20 | RADRPT ---
PROCEDURE: US Lower extremity Venous. CLINICAL INDICATION: Pain and swelling TECHNIQUE: Multiple sonographic images of the bilateral lower extremity deep venous system was obt ained utilizing grayscale, color-flow, compressive sonography and doppler imaging with augmentation. The images were reviewed on a PACS workstation. COMPARISON: None. FINDINGS: Directed ultrasound examination was performed of bilateral external iliac and common femoral veins. Normal color flow and Doppler signal is noted of bilateral external iliac and common femoral vein. N o clot or occlusion is seen. IMPRESSION: 1. No evidence of DVT in bilateral common femoral vein or external iliac vein. RPTAT: HH .Lamonte Juarez MD, MD Date Time Electronically viewed and signed by .Lamonte Juarez MD, on 06/24/2017 12:20 .W/
--- NOTE | 2017-06-24 12:25 | RADRPT ---
PROCEDURE: Chest x-ray CLINICAL INDICATION: Fever TECHNIQUE: Chest 2 view COMPARISON: None FINDINGS: The heart is normal in size. The pulmonary vessels are normal in caliber. The lungs are clear. Th e costophrenic angles are sharp. The visualized bony thorax is unremarkable. IMPRESSION: No acute cardiopulmonary disease. RPTAT: HH .Lamonte Juarez MD, MD Date Time Electronically viewed and signed by .Lamonte Juarez MD, MD on 06/24/2017 12:24 .W/
--- NOTE | 2017-06-24 14:12 | CONS ---
Date/Time of Note Date/Time of Note DATE: 06/24/17 TIME: 14:01 Assessment/Plan Assessment/Plan Chief Complaint/Hosp Course Assessment and plan 1. Abdominal pain. Patient did have CT scan of the abdomen showing new thick- walled short segment of the sigmoid colon suspect for possible inflammatory process. Patient remains on antibiotics. Continue with analgesics. Follow-up with recommendations. Still with reported nausea and vomiting. Etiology unknown. Will get churn driller consultation 2. Asymmetric enhancement of the iliofemoral venous system with decreased enhancement of the left iliofemoral venous system suspect for possible thrombosis. Recent Doppler ultrasound was negative for any thrombotic issue. Monitor for now. Consider vascular surgeon pending clinical course 3. Dysuria. Follow-up on urine culture. Of note initial urinalysis not suspect for UTI. Remains on antibiotics for now. 4. History of severe endometriosis status post BSO/BALJIT. Continue with FIRE EXTINGUISHER SPRINKLER INSPECTOR recommendations. Disposition plan: Supervisor Instrument Maintenance follow. Follow-up on urine cultures for dysuria. Continue with antibiotics. Monitor for clinical improvement. Continue with analgesics. Discussed plan of care Dr. Santiago Problems: Consultation Date/Type/Reason Admit Date/Time Jun 22, 2017 at 19:09 Hx of Present Illness This is a 31-year-old female with history of BALJIT and BSO roughly her on June 01, 2017, severe endometriosis, who was brought to [facility] due to reports of severe abdominal pain that she reports started roughly on June 20, 2017. Patient did report that she all of a sudden reported abdominal pain low her umbilical area nonradiating with associated nausea and vomiting nonbilious nonbloody. She reports symptoms worsen around June 21 and as such went to [facility] for further evaluation. She was seen by her FIRE EXTINGUISHER SPRINKLER INSPECTOR. She did have imaging of her abdomen showing small amount of right pericolic fluid as well as new hazy attenuation of pericolonic fat near the ascending colon likely inflammatory. There is also seen thickened wall short segment of sigmoid colon in the pelvis. Findings suggestive of possible inflammatory process and possibly ischemic injury. She also had findings showing asymmetric enhancement of the iliofemoral venous system with decreased enhancement of the left iliofemoral venous system. There was suspicion of possible thrombosis of this venous area however patient did receive Doppler ultrasound that was negative for any thrombotic findings. Patient was initially febrile when she came in however since her admission her leukocytosis has downward trended and she remains afebrile present. She does report having some abdominal pain still had some dysuria. Initial urinalysis was not suggestive of urinary tract infection. She still reports having some abdominal pain 6 out of 10 and only controlled with opiate medication. She also persists with some nausea and vomiting with this issue. She also reports not having a bowel movement for the past 2 days. We will evaluate her for the aformentiond issues. 12 point review of systems obtained and entirely negative except that mentioned in the history of present illness Past Medical History Medical/surgical history 1. Severe endometriosis status post BSO/BALJIT Medical History: other (History of endometriosis) Past Surgical History Past Surgical Hx: other (BALJIT/BSO) Family History Significant Family History: no pertinent family hx Social History Alcohol Use: none Smoking Status: Never smoker Drug Use: none, other ( and stable relationship with one partner) Exam/Review of Systems Vital Signs Vitals Vital Signs Date Time Temp Pulse Resp B/P Pulse Ox O2 Delivery O2 Flow Rate FiO2 06/24/17 08:15 98.7 83 17 107/65 93 06/22/17 20:24 Room Air Intake and Output 06/23/17 06/23/17 06/24/17 14:59 22:59 06:59 Intake Total 1300 ml 1387.5 ml Output Total 1300 ml Balance 0 ml 1387.5 ml Exam Constitutional: alert, oriented Psych: nl mood/affect, no complaints Head: normocephalic Eyes: nl conjunctiva Respiratory: clear to auscultation, normal air movement Cardiovascular: regular rate and rhythm Gastrointestinal: soft, tender Musculoskeletal: nl extremities to inspection, nl gait and stance Neurological: ENVIRONMENTAL COMMUNICATIONS SPECIALIST II-XII intact, nl mental status, nl speech Skin: nl turgor Results Result Diagram: 06/24/172 06/22/173 Results 24 hrs Laboratory Tests Test 06/24/17 04:42 White Blood Count 8.1 # Red Blood Count 3.15 L Hemoglobin 9.7 L Hematocrit 28.2 L Mean Corpuscular Volume 89.5 Mean Corpuscular Hemoglobin 30.8 Mean Corpuscular Hemoglobin Concent 34.4 Red Cell Distribution Width 12.6 Platelet Count 205 Mean Platelet Volume 10.3 Neutrophils % 53.4 Lymphocytes % 32.3 Monocytes % 9.4 Eosinophils % 3.9 Basophils % 0.6 Nucleated Red Blood Cells % 0.0 Neutrophils # 4.3 Lymphocytes # 2.6 Monocytes # 0.8 Eosinophils # 0.3 Basophils # 0.1 Nucleated Red Blood Cells # 0.0 Medications Medications Current Medications Hydromorphone HCl 1 mg 1 mg Q2 PRN IV pain Last administered on 06/24/17 12: 39; Admin Dose 1 MG; Start 06/22/17 at 21:30 Dextrose/Lactated Ringer's 1,000 ml @ 125 mls/hr Q8H IV Last administered on 06/24/17 12:40; Admin Dose 125 MLS/HR; Start 06/22/17 at 21:30 Piperacillin Sod/ Tazobactam Sod (Zosyn 3.375gm/ 50 ml (Pmx)) 50 ml @ 100 mls/ hr Q6 IVPB Last administered on 06/24/17 12:40; Admin Dose 100 MLS/HR; Start 06/23/17 at 00:00 Ondansetron HCl (Zofran Inj) 4 mg Q6H PRN IV NAUSEA AND/OR VOMITING Last administered on 06/24/17 08:45; Admin Dose 4 MG; Start 06/23/17 at 00:30 YONY LINK Jun 24, 2017 14:11
--- NOTE | 2017-06-24 14:24 | QN ---
Documentation Comment [facility]complains of abdominal pain ,had one episode of vomiting,. VS stable Gen NAD Abd soft NT ND incision is healing well Genitalia Deffered. Patient seems to have Severe and scattered Endometriosis and It might be the reason for pain At this time please continue the previous orders. Surgical visit and follow up is recommended STEPHANIE SALAZAR M.D. Jun 24, 2017 14:24
[2017-06-24 15:24] LABS: ADD UMIC YES; UR ASCORBIC ACID NEGATIVE (NEGATIVE); UR BACTERIA FEW /HPF (NONE SEEN); UR BILIRUBIN (Dip) NEGATIVE (NEGATIVE); UR BLOOD (Dip) 2+ mg/dL (NEGATIVE); UR CLARITY CLEAR (CLEAR); UR COLOR STRAW (YELLOW); UR GLUCOSE (Dip) NEGATIVE (NEGATIVE); UR KETONES (Dip) NEGATIVE (NEGATIVE); UR LEUKOCYTE ESTERASE (Dip) 1+ Leu/ul (NEGATIVE); UR NITRITE (Dip) NEGATIVE (NEGATIVE); UR RBC 2 /HPF (0-5); UR SPECIFIC GRAVITY (Dip) 1.009 (1.003-1.030); UR SQUAMOUS EPITHELIAL CELL FEW /HPF (FEW); UR TOTAL PROTEIN (Dip) NEGATIVE (NEGATIVE); UR UROBILINOGEN (Dip) NEGATIVE (NEGATIVE)
--- NOTE | 2017-06-24 15:48 | CONS ---
Date/Time of Note Date/Time of Note DATE: 06/24/17 TIME: 15:18 Assessment/Plan Assessment/Plan Chief Complaint/Hosp Course Summary Assessment and Plan: Assessment: Abdominal pain/ Pelvic pain-S/p BALJIT BSO for hx of severe pelvic endometriosis R/o inflammatory process vs ischemic Nausea/vomiting Leukocytosis/resolved Plan: IBD markers Utilize pain management Utilized antiemetic medication Patient with increased nausea and vomiting will continue to monitor for improvement Plan for colonoscopy on Tuesday in hopes the patient will be able to tolerate prep more so Tuesday Endoscopy - risks/benefits/alternatives/indications of procedure and sedation/ anesthesia discussed with patient who states understanding and gives informed consent to proceed. PARQ held and questions were answered. Patient seen in collaboration with DR. Benitez Chief Complaint/Reason for Visit: Lower abdominal/pelvic pain History of Present Illness: This is a 31-year-old female with past medical history of severe endometriosis, , ectopic , status post BALJIT SBO about 22 days ago. Patient starting to complain of lower abdominal/pelvic pain Tuesday was able to relieve pain by taking Ultram, unfortunately pain came back on Tuesday and was not relieved with any medication, pain was described as a progressive ripping sensation, 10 out of 10, not relieved or aggravated by anything in particular. She also complain of fever and chills at that time. She called her who took her to the ER. Upon initial evaluation and workup patient noted to have leukocytosis 18,000 and a fever 102.4. Blood cx and urine cx were collected. No growth from blood cultures have been seen, urine culture showed staph, and was started on antibiotics. Leukocytosis has since resolved. A CT abdomen/ pelvis was obtained and suggested to be repeated with IV, p.o., and rectal contrast, I reviewed results and copied below, results with multiple findings including inflammatory vs poss ischemic, Doppler was completed negative for thrombosis. At the time evaluation patient states abdominal pain has improved is now a 3-4 out of 10 on the pain scale, she still complains of nausea and vomiting with improvement after antiemetic medication. However still not able to tolerate clear liquid diet. She denies dysphagia, odynophagia, hematemesis, hematochezia, diarrhea, constipation, unintentional weight loss. Prior to BALJIT SBO sx she did see a GI doctor and was planning to have a colonoscopy, for "inflammation and bloating" however did not follow-up. She has never had an endoscopy or previous colonoscopy, there is no family history of inflammatory bowel disease, colon cancer, or esophageal cancer, that she is aware of. Recommend colonoscopy, however patient with nausea and vomiting, unable to tolerate diet, will continue to monitor patient with plan for colonoscopy Tuesday in hopes patient will be able to tolerate prep Tuesday. Past Medical History: History of endometriosis Total abdominal hysterectomy with bilateral salpingo-oophorectomy x14 years ago Ectopic Allergies: No known allergies PHYSICAL EXAMINATION: GENERAL: Well developed, well nourished, alert & oriented x 3, in no acute distress SKIN: No lesions, no stigmata chronic liver disease, no evidence of bleeding diathesis, surgical scars LYMPHATIC: No palpable lymphadenopathy. HEAD: Normocephalic, atraumatic, no tenderness. EYES: Pupils equal reactive to light and accommodation, full extraocular movements, sclera clear, non-icteric, no discharge. EARS/NOSE AND THROAT: Ears normal, nose normal, oropharynx normal, oral membranes well hydrated without lesions. NECK: Supple, no masses, CARDIOVASCULAR: Heart: Regular rate and rhythm, no murmurs, gallops or rubs. GASTROINTESTINAL AND LIVER: Abdomen: Soft, non tenderness, non-distended, no hernias, no masses, no organomegaly, no ascites, no guarding, no rebound tenderness, normoactive bowel sounds. Rectal: Deferred. GENITOURINARY: Female genitalia within normal limits. CT abd/pelvis: small amount of right paracolic fluid has decreased in volume; new small amount of left pericolic fluid. New hazy attenuation of pericolonic fat near the ascending colon, likely inflammatory. Minimal worsening of hazy mesentery. No other significant change in small amount of mesenteric fluid.No significant change in size of soft tissue attenuation abnormality abutting the right external iliac neurovascular bundle, right posterolateral bladder, and right side of the sigmoid colon; this could be secondary to complex fluid or blood products.New thick-walled short segment of sigmoid colon in the pelvis; there is adjacent small amount of fluid, hazy mesentery, and adjacent fascial thickening/fluid. These findings may be secondary to inflammatory process, though other etiologies are possible including ischemia or injury.Asymmetric enhancement of the iliofemoral venous system with decreased enhancement of the left iliofemoral venous system; this finding is not optimally assessed on this study and could be secondary to differences and enhancement kinetics, but venous disease such as thrombosis is in the differential diagnosis, especially given the history and other findings. Consider dedicated iliofemoral venous imaging for further analysis. Problems: Consultation Date/Type/Reason Admit Date/Time Jun 22, 2017 at 19:09 Date of Consultation: Jun 24, 2017 Type of Consultation: GI Reason for Consultation Lower abdominal/pelvic pain Constitutional: improved, no complaints Eyes: no complaints ENT: no complaints Respiratory: no complaints Cardiovascular: no complaints Gastrointestinal: nausea, pain (Improved), vomiting Genitourinary: no complaints Musculoskeletal: no complaints Skin: no complaints Neurologic: no complaints Endocrine: no complaints Past Medical History Medical History: other (History of endometriosis) Past Surgical History Past Surgical Hx: other (BALJIT/BSO, topic , ) Family History Significant Family History: no pertinent family hx Social History Alcohol Use: none Smoking Status: Never smoker Drug Use: none, other ( and stable relationship with one partner) Exam/Review of Systems Vital Signs Vitals Vital Signs Date Time Temp Pulse Resp B/P Pulse Ox O2 Delivery O2 Flow Rate FiO2 06/24/17 08:15 98.7 83 17 107/65 93 06/22/17 20:24 Room Air Intake and Output 06/23/17 06/23/17 06/24/17 15:00 23:00 07:00 Intake Total 1300 ml 1387.5 ml Output Total 1300 ml Balance 0 ml 1387.5 ml Exam Constitutional: alert, oriented Psych: no complaints Head: normocephalic Eyes: nl conjunctiva ENMT: nl external ears & nose Neck: non-tender, supple Respiratory: clear to auscultation, normal air movement Cardiovascular: nl pulses, regular rate and rhythm Gastrointestinal: bowel sounds, surgical scars, tender, No distended, No firm, No hepatomegaly, No mass, No splenomegaly Genitourinary - Female: nl adnexae, nl external genitalia Results Result Diagram: 06/24/172 06/22/172202 Results 24 hrs Laboratory Tests Test 06/24/17 04:42 White Blood Count 8.1 # Red Blood Count 3.15 L Hemoglobin 9.7 L Hematocrit 28.2 L Mean Corpuscular Volume 89.5 Mean Corpuscular Hemoglobin 30.8 Mean Corpuscular Hemoglobin Concent 34.4 Red Cell Distribution Width 12.6 Platelet Count 205 Mean Platelet Volume 10.3 Neutrophils % 53.4 Lymphocytes % 32.3 Monocytes % 9.4 Eosinophils % 3.9 Basophils % 0.6 Nucleated Red Blood Cells % 0.0 Neutrophils # 4.3 Lymphocytes # 2.6 Monocytes # 0.8 Eosinophils # 0.3 Basophils # 0.1 Nucleated Red Blood Cells # 0.0 Medications Medications Current Medications Hydromorphone HCl 1 mg 1 mg Q2 PRN IV pain Last administered on 06/24/17 14: 47; Admin Dose 1 MG; Start 06/22/17 at 21:30 Dextrose/Lactated Ringer's 1,000 ml @ 125 mls/hr Q8H IV Last administered on 06/24/17 12:40; Admin Dose 125 MLS/HR; Start 06/22/17 at 21:30 Piperacillin Sod/ Tazobactam Sod (Zosyn 3.375gm/ 50 ml (Pmx)) 50 ml @ 100 mls/ hr Q6 IVPB Last administered on 06/24/17 12:40; Admin Dose 100 MLS/HR; Start 06/23/17 at 00:00 Ondansetron HCl (Zofran Inj) 4 mg Q6H PRN IV NAUSEA AND/OR VOMITING Last administered on 06/24/17 14:47; Admin Dose 4 MG; Start 06/23/17 at 00:30 Copies To: CC: WIN BENITEZ MD, VICTORIA Jun 24, 2017 15:31
[2017-06-24 20:36] VITALS: BP 117/66; RESP 17
[2017-06-25] MEDS: HYDROmorphONE 1 MG/ML SYG IV PRN ×6 (01:02→13:05)
[2017-06-25 02:28] VITALS: BP 109/61; RESP 18
[2017-06-25] MEDS: ONDANSETRON 4 MG INJ IV PRN ×3 (04:57→23:06)
[2017-06-25] MEDS: DEXTROSE 5%-LR 1,000 ML IV SCH ×3 (05:30→16:02)
[2017-06-25] MEDS: PIPER-TAZO 3.375 GM IV (PMX) 50 ML IVPB SCH ×3 (05:52→17:42)
[2017-06-25 08:01] VITALS: BP 112/67; RESP 18
--- NOTE | 2017-06-25 09:31 | PN ---
Date/Time of Note Date/Time of Note DATE: 06/25/17 TIME: 09:29 Assessment/Plan Lines/Catheters IV Catheter Type (from [facility]): Peripheral IV Assessment/Plan Chief Complaint/Hosp Course The patient is a 31-year-old female who is 22 days status post BALJIT and BSO. The procedure went uneventfully. The patient was doing well until yesterday when she developed 102 fever and vague abdominal pain. Her admitting white count was 18,000, and the CT scan showed postsurgical changes. Her pain scale on admission was 10, and it has come down to 2 this morning. She states that she feels much improved. A CT scan of the abdomen and pelvis with oral rectal and IV contrast is pending. Problems: Assessment/Plan The abdominal examination is benign Colonoscopy has been scheduled for June 27. There are no new surgical recommendations. Subjective 24 Hr Interval Summary Although the patient remains afebrile, and leukocytosis resolved, continues to have abdominal discomfort with nausea Exam/Review of Systems Vital Signs Vitals Vital Signs Date Time Temp Pulse Resp B/P Pulse Ox O2 Delivery O2 Flow Rate FiO2 06/25/17 08:01 98.1 18 18 112/67 99 06/22/17 20:24 Room Air Intake and Output 06/24/17 06/24/17 06/25/17 15:00 23:00 07:00 Intake Total 800 ml 835 ml 1350 ml Balance 800 ml 835 ml 1350 ml Results Result Diagram: 06/24/17 0442 06/22/17 2203 HOMER CAMP MD Jun 25, 2017 09:31
--- NOTE | 2017-06-25 09:44 | PN ---
Date/Time of Note Date/Time of Note DATE: 06/25/17 TIME: 09:41 Assessment/Plan VTE Prophylaxis VTE Prophylaxis Intervention: ambulation Lines/Catheters IV Catheter Type (from Nrsg): Peripheral IV Assessment/Plan Chief Complaint/Hosp Course Assessment and plan 1. Abdominal pain. Patient did have CT scan of the abdomen showing new thick- walled short segment of the sigmoid colon suspect for possible inflammatory process. Patient remains on antibiotics. Continue with analgesics. no plan for surgery per surgeon. GI following. Plan for endoscopy 2. Asymmetric enhancement of the iliofemoral venous system with decreased enhancement of the left iliofemoral venous system suspect for possible thrombosis. Recent Doppler ultrasound was negative for any thrombotic issue. Monitor for now. Consider vascular surgeon pending clinical course 3. Dysuria. . Remains on antibiotics for now. 4. History of severe endometriosis status post BSO/BALJIT. Continue with MEMORY CARE PROGRAM DIRECTOR recommendations. Disposition plan: continue with analgesics. plan for EGD. monitor for improvement of pain Discussed plan of care Dr. Santiago Problems: Subjective 24 Hr Interval Summary Free Text/Dictation states she has some abd pain still with some nausea Exam/Review of Systems Vital Signs Vitals Vital Signs Date Time Temp Pulse Resp B/P Pulse Ox O2 Delivery O2 Flow Rate FiO2 06/25/17 08:01 98.1 18 18 112/67 99 06/22/17 20:24 Room Air Intake and Output 06/24/17 06/24/17 06/25/17 15:00 23:00 07:00 Intake Total 800 ml 835 ml 1350 ml Balance 800 ml 835 ml 1350 ml Exam Constitutional: alert, oriented Psych: nl mood/affect, no complaints Head: normocephalic Eyes: nl conjunctiva Respiratory: clear to auscultation, normal air movement Cardiovascular: regular rate and rhythm Gastrointestinal: soft, tender Musculoskeletal: nl extremities to inspection, nl gait and stance Neurological: SIGNWRITER II-XII intact, nl mental status, nl speech Skin: nl turgor Results Result Diagram: 06/24/172 06/22/172202 Results 24 hrs Laboratory Tests Test 06/24/17 13:32 06/25/17 04:37 Urine Color STRAW Urine Clarity CLEAR Urine pH 7.0 Urine Specific [place] 1.009 Urine Ketones NEGATIVE Urine Nitrite NEGATIVE Urine Bilirubin NEGATIVE Urine Urobilinogen NEGATIVE Urine Leukocyte Esterase 1+ H Urine Microscopic RBC 2 Urine Microscopic WBC 3 Urine Squamous Epithelial Cells FEW Urine Bacteria FEW A Urine Hemoglobin 2+ H Urine Glucose NEGATIVE Urine Total Protein NEGATIVE Erythrocyte Sedimentation Rate 30.0 H C-Reactive Protein 4.4 H Medications Medications Current Medications Hydromorphone HCl 1 mg 1 mg Q2 PRN IV pain Last administered on 06/25/17 08: 59; Admin Dose 1 MG; Start 06/22/17 at 21:30 Dextrose/Lactated Ringer's 1,000 ml @ 125 mls/hr Q8H IV Last administered on 06/25/17 07:01; Admin Dose 125 MLS/HR; Start 06/22/17 at 21:30 Piperacillin Sod/ Tazobactam Sod (Zosyn 3.375gm/ 50 ml (Pmx)) 50 ml @ 100 mls/ hr Q6 IVPB Last administered on 06/25/17 05:52; Admin Dose 100 MLS/HR; Start 06/23/17 at 00:00 Ondansetron HCl (Zofran Inj) 4 mg Q6H PRN IV NAUSEA AND/OR VOMITING Last administered on 06/25/17 04:57; Admin Dose 4 MG; Start 06/23/17 at 00:30 YONY LINK Jun 25, 2017 09:44
[2017-06-25] MEDS ORDERED: OXYCODONE/ACETAMINOPHEN (5/325) TAB PO PRN ×2 (10:00)
[2017-06-25 10:31] LABS: CALCIUM 9.1 mg/dl (8.4-10.2); CREATININE 0.77 mg/dl (0.44-1.00); POTASSIUM 3.1 mmol/L (3.5-5.1)
--- NOTE | 2017-06-25 13:28 | PN ---
Date/Time of Note Date/Time of Note DATE: 06/25/17 TIME: 13:25 Assessment/Plan VTE Prophylaxis VTE Prophylaxis Intervention: SCD's Lines/Catheters IV Catheter Type (from Nrsg): Peripheral IV Assessment/Plan Chief Complaint/Hosp Course Summary Assessment and Plan: Assessment: Abdominal pain/ Pelvic pain-S/p BALJIT BSO for hx of severe pelvic endometriosis R/o inflammatory process vs ischemic Nausea/vomiting Leukocytosis/resolved Plan: IBD markers-pending pain management Utilized antiemetic medication Patient with increased nausea and vomiting will continue to monitor for improvement Plan for colonoscopy on Tuesday in hopes the patient will be able to tolerate prep more so Tuesday Patient seen in collaboration with Dr. Beintez Subjective: Course reviewed with nursing staff Patient interviewed and examined All labs, imaging and other results reviewed The patient still with significant nausea and vomiting not able to tolerate p.o. clear liquids at this time. Nurse will speak to primary to change pain medication to Toradol as patient was able to tolerate Toradol well. If nausea and vomiting improves plan to start prep tomorrow and proceed with colonoscopy Tuesday. PHYSICAL EXAMINATION: GENERAL: Well developed, well nourished, alert & oriented x 3, in no acute distress SKIN: No lesions, no stigmata chronic liver disease, no evidence of bleeding diathesis, surgical scars LYMPHATIC: No palpable lymphadenopathy. HEAD: Normocephalic, atraumatic, no tenderness. EYES: Pupils equal reactive to light and accommodation, full extraocular movements, sclera clear, non-icteric, no discharge. EARS/NOSE AND THROAT: Ears normal, nose normal, oropharynx normal, oral membranes well hydrated without lesions. NECK: Supple, no masses, CARDIOVASCULAR: Heart: Regular rate and rhythm, no murmurs, gallops or rubs. GASTROINTESTINAL AND LIVER: Abdomen: Soft, non tenderness, non-distended, no hernias, no masses, no organomegaly, no ascites, no guarding, no rebound tenderness, normoactive bowel sounds. Rectal: Deferred. GENITOURINARY: Female genitalia within normal limits. Problems: Exam/Review of Systems Vital Signs Vitals Vital Signs Date Time Temp Pulse Resp B/P Pulse Ox O2 Delivery O2 Flow Rate FiO2 06/25/17 08:01 98.1 18 18 112/67 99 06/22/17 20:24 Room Air Intake and Output 1106/24/17 06/25/17 15:00 23:00 07:00 Intake Total 800 ml 835 ml 1350 ml Balance 800 ml 835 ml 1350 ml Results Result Diagram: 06/24/17 0442 06/25/17 0901 Results 24 hrs Laboratory Tests Test 06/24/17 13:32 06/25/17 04:37 06/25/17 09:01 Urine Color STRAW Urine Clarity CLEAR Urine pH 7.0 Urine Specific [place] 1.009 Urine Ketones NEGATIVE Urine Nitrite NEGATIVE Urine Bilirubin NEGATIVE Urine Urobilinogen NEGATIVE Urine Leukocyte Esterase 1+ H Urine Microscopic RBC 2 Urine Microscopic WBC 3 Urine Squamous Epithelial Cells FEW Urine Bacteria FEW A Urine Hemoglobin 2+ H Urine Glucose NEGATIVE Urine Total Protein NEGATIVE Erythrocyte Sedimentation Rate 30.0 H C-Reactive Protein 4.4 H Sodium Level 144 Potassium Level 3.1 L Chloride Level 101 Carbon Dioxide Level 33 H Anion Gap 13 Blood Urea Nitrogen 3 L Creatinine 0.77 Glucose Level 102 Calcium Level 9.1 Medications Medications Current Medications Hydromorphone HCl 1 mg 1 mg Q2 PRN IV pain Last administered on 06/25/17 13: 05; Admin Dose 1 MG; Start 06/22/17 at 21:30 Dextrose/Lactated Ringer's 1,000 ml @ 125 mls/hr Q8H IV Last administered on 06/25/17 07:01; Admin Dose 125 MLS/HR; Start 06/22/17 at 21:30 Piperacillin Sod/ Tazobactam Sod (Zosyn 3.375gm/ 50 ml (Pmx)) 50 ml @ 100 mls/ hr Q6 IVPB Last administered on 06/25/17 11:56; Admin Dose 100 MLS/HR; Start 06/23/17 at 00:00 Ondansetron HCl (Zofran Inj) 4 mg Q6H PRN IV NAUSEA AND/OR VOMITING Last administered on 06/25/17 10:57; Admin Dose 4 MG; Start 06/23/17 at 00:30 Oxycodone/ Acetaminophen (Percocet (5/ 325)) 1 tab Q4H PRN PO PAIN; Start at 10:00 Oxycodone/ Acetaminophen (Percocet (5/ 325)) 2 tab Q4H PRN PO PAIN; Start at 10:00 Ketorolac Tromethamine (Toradol) 15 mg Q6H PRN IM PAIN; Start 06/25/17 at 13: 30; Stop 06/28/17 at 13:29 STARR OLMEDO Jun 25, 2017 13:28
[2017-06-25 14:00] VITALS: BP 102/59; RESP 18
[2017-06-25] MEDS: KETOROLAC 15 MG INJ IM PRN ×2 (14:50→21:30)
--- NOTE | 2017-06-25 19:03 | CONS ---
Date/Time of Note Date/Time of Note DATE: 06/25/17 TIME: 18:48 Consultation Date/Type/Reason Admit Date/Time Jun 22, 2017 at 19:09 Date of Consultation: Jun 25, 2017 Type of Consultation: OBGYN Reason for Consultation ADMITTED THROUGH ER DUE TO POSTOP FEVER AND LEUKOCYTOSIS ABDOMINAL PAIN SEVERE. Hx of Present Illness ADMITTED FROM ER WITH FEVER , LEUKOCYTOSIS AND ABDOMINAL PAIN POSTOP BALJIT BS BILATERAL OVARIAN CYSTECTOMIES WITH SMALL OVARIAN REMNANT TISSUE FROM SEVERE ENDOMETRIOSIS Constitutional: improved, no complaints Eyes: no complaints ENT: no complaints Respiratory: no complaints Cardiovascular: no complaints Gastrointestinal: no complaints Genitourinary: no complaints Musculoskeletal: no complaints Skin: no complaints Neurologic: no complaints Endocrine: no complaints Lymphatic: no complaints Psychological: nl mood/affect, no complaints Immunologic: no complaints Past Medical History Medical History: other (History of endometriosis) Past Surgical History Past Surgical Hx: other (BALJIT/BSO, topic , ) Social History Alcohol Use: none Smoking Status: Never smoker Drug Use: none, other ( and stable relationship with one partner) Exam/Review of Systems Vital Signs Vitals Vital Signs Date Time Temp Pulse Resp B/P Pulse Ox O2 Delivery O2 Flow Rate FiO2 06/25/17 14:00 98.0 70 18 102/59 99 06/22/17 20:24 Room Air Intake and Output 06/24/17 06/24/17 06/25/17 15:00 23:00 07:00 Intake Total 800 ml 835 ml 1350 ml Balance 800 ml 835 ml [address] SCAN REVIEWED, APPARENTLY WITH POSTOP FLUID, PARACOLIC COLLECTION , BETTER ON IV ANTIBIOTICS. LEUKOCYTOSIS BETTER AFTER INITIAL IV ANTIBIOTICS. AFEBRILE NOW AND ABDOMINAL PAIN BETTER AFTER NARCOTICS WERE DC, INTERFERED WITH FOOD INTAKE DUE TO NAUSEA AND VOMITING. HISTORY OF CHRONIC PID WITH BILATERAL LARGE HYDROSALPINX PROBABLY EXACERBATED DUE TO SURGERY. (This diagnosis were along with severe endometriosis) NOW IS ABLE TO EAT AND HAD BM. NOT NAUSEATED ANYMORE. TORADOL WORKING WELL FOR HER INCISION HEALING REAL WELL WITH NO COLLECTION UNDERNEATH. AWAITING COLONOSCOPY Constitutional: alert, oriented, well developed Psych: nl mood/affect, no complaints Head: atraumatic, normocephalic Eyes: EOMI, PERRL, nl conjunctiva, nl lids, nl sclera ENMT: nl external ears & nose, nl lips & teeth, nl nasal mucosa & septum Neck: non-tender, supple Respiratory: clear to auscultation, normal air movement Cardiovascular: nl pulses, regular rate and rhythm Gastrointestinal: nl liver, spleen, non-tender, soft Musculoskeletal: nl extremities to inspection, nl gait and stance Extremities: normal pulses Neurological: FIRE PATROLLER II-XII intact, nl mental status, nl speech, nl strength Skin: nl turgor, No rash or lesions Lymph: nl lymph nodes Results Result Diagram: 06/24/17 0442 06/25/17 0901 Results 24 hrs Laboratory Tests Test 06/25/17 04:37 06/25/17 09:01 Erythrocyte Sedimentation Rate 30.0 H C-Reactive Protein 4.4 H Sodium Level 144 Potassium Level 3.1 L Chloride Level 101 Carbon Dioxide Level 33 H Anion Gap 13 Blood Urea Nitrogen 3 L Creatinine 0.77 Glucose Level 102 Calcium Level 9.1 Medications Medications Current Medications Hydromorphone HCl 1 mg 1 mg Q2 PRN IV pain Last administered on 06/25/17 13: 05; Admin Dose 1 MG; Start 06/22/17 at 21:30 Dextrose/Lactated Ringer's 1,000 ml @ 125 mls/hr Q8H IV Last administered on 06/25/17 16:02; Admin Dose 125 MLS/HR; Start 06/22/17 at 21:30 Piperacillin Sod/ Tazobactam Sod (Zosyn 3.375gm/ 50 ml (Pmx)) 50 ml @ 100 mls/ hr Q6 IVPB Last administered on 06/25/17 17:42; Admin Dose 100 MLS/HR; Start 06/23/17 at 00:00 Ondansetron HCl (Zofran Inj) 4 mg Q6H PRN IV NAUSEA AND/OR VOMITING Last administered on 06/25/17 10:57; Admin Dose 4 MG; Start 06/23/17 at 00:30 Oxycodone/ Acetaminophen (Percocet (5/ 325)) 1 tab Q4H PRN PO PAIN; Start at 10:00 Oxycodone/ Acetaminophen (Percocet (5/ 325)) 2 tab Q4H PRN PO PAIN; Start at 10:00 Ketorolac Tromethamine (Toradol) 15 mg Q6H PRN IM PAIN Last administered on t 14:50; Admin Dose 15 MG; Start 06/25/17 at 13:30; Stop 06/28/17 at 13: 29 JOSE RAMIREZ MD Jun 25, 2017 18:59
[2017-06-25 20:00] VITALS: BP 114/69; RESP 20
[2017-06-25] MEDS: POTASSIUM CHLORIDE (SR) 10 MEQ TAB PO SCH (20:33)
[2017-06-25] MEDS ORDERED: KETOROLAC 30 MG INJ IV PRN (23:00)
[2017-06-25] MEDS: KETOROLAC 30 MG INJ IM PRN (23:12)
[2017-06-26] MEDS: PIPER-TAZO 3.375 GM IV (PMX) 50 ML IVPB SCH ×4 (01:13→17:24)
[2017-06-26 02:00] VITALS: BP 116/68; RESP 20
[2017-06-26 05:41] LABS: BASOPHIL # 0.1 10^3/ul (0.0-0.1); EOSINOPHILS # 0.6 10^3/ul (0.0-0.5); EOSINOPHILS % 11.6 % (0.0-7.0); LYMPHOCYTES # 2.2 10^3/ul (0.8-2.9); LYMPHOCYTES % 41.4 % (15.0-51.0); MEAN CORPUSCULAR HEMOGLOBIN 30.3 pg (29.0-33.0); MEAN CORPUSCULAR HGB CONC 34.4 g/dl (32.0-37.0); MEAN CORPUSCULAR VOLUME 88.2 fl (82.0-101.0); MEAN PLATELET VOLUME 9.9 fl (7.4-10.4); MONOCYTE # 0.5 10^3/ul (0.3-0.9); MONOCYTES % 9.1 % (0.0-11.0); NEUTROPHIL # 1.9 10^3/ul (1.6-7.5); NEUTROPHILS % 36.7 % (39.0-77.0); PLATELET COUNT 241 10^3/UL (140-415); RED BLOOD COUNT 3.63 10^6/ul (4.20-5.40); RED CELL DISTRIBUTION WIDTH 12.1 % (11.5-14.5); WHITE BLOOD COUNT 5.3 10^3/ul (4.8-10.8)
[2017-06-26] MEDS: DEXTROSE 5%-LR 1,000 ML IV SCH ×3 (05:45→21:16)
[2017-06-26 07:32] LABS: ALBUMIN 3.7 g/dl (3.3-4.9); ALBUMIN/GLOBULIN RATIO 1.02; BILIRUBIN,INDIRECT 0.2 mg/dl (0-1.1); BILIRUBIN,TOTAL 0.2 mg/dl (0.2-1.3); CALCIUM 9.7 mg/dl (8.4-10.2); CREATININE 0.69 mg/dl (0.44-1.00); POTASSIUM 3.8 mmol/L (3.5-5.1); TOTAL PROTEIN 7.3 g/dl (6.1-8.1)
[2017-06-26 07:52] VITALS: BP 101/57; RESP 18
[2017-06-26] MEDS: KETOROLAC 30 MG INJ IM PRN (07:53)
--- NOTE | 2017-06-26 08:20 | PN ---
Date/Time of Note Date/Time of Note DATE: 06/26/17 TIME: 08:18 Assessment/Plan Lines/Catheters IV [facility] Peripheral IV Assessment/Plan Chief Complaint/Hosp Course The patient is a 31-year-old female who is 22 days status post BALJIT and BSO. The procedure went uneventfully. The patient was doing well until yesterday when she developed 102 fever and vague abdominal pain. Her admitting white count was 18,000, and the CT scan showed postsurgical changes. Her pain scale on admission was 10, and it has come down to 2 this morning. She states that she feels much improved. A CT scan of the abdomen and pelvis with oral rectal and IV contrast is pending. Problems: Assessment/Plan Abdominal examination is benign Continue medical management Awaiting colonoscopy tomorrow Subjective 24 Hr Interval Summary Patient states that she has a new onset of knifelike stabbing pain in the left lower quadrant, this despite being afebrile with leukocytosis resolved. Exam/Review of Systems Vital Signs Vitals Vital Signs Date Time Temp Pulse Resp B/P Pulse Ox O2 Delivery O2 Flow Rate FiO2 06/26/17 07:52 98.2 67 18 101/57 100 06/22/17 20:24 Room Air Intake and Output 06/25/17 06/25/17 06/26/17 14:59 22:59 06:59 Intake Total 235 ml 1735 ml 975 ml Balance 235 ml 1735 ml 975 ml Results Result Diagram: 06/26/17 0441 06/26/17 0441 HOMER CAMP MD Jun 26, 2017 08:20
--- NOTE | 2017-06-26 08:23 | CONS ---
Date/Time of Note Date/Time of Note DATE: 06/26/17 TIME: 08:12 Assessment/Plan Assessment/Plan Additional Assessment/Plan I agree that pain is legitimate in this patient. Until workup is completed I will treat her aggressively but not to the point if patient has a opioid bowel syndrome. Will switch to SANDWICH COUNTER ATTENDANT Dilaudid and Toradol IV for breakthrough pain started off and Relistor to avoid the constipating effects of opioids. Follow closely Consultation Date/Type/Reason Admit Date/Time Jun 22, 2017 at 19:09 Reason for Consultation Pain control Hx of Present Illness This is a very pleasant 31-year-old female who moved on June 01 underwent a total abdominal hysterectomy bilateral salpingo-oophorectomy. She did well for approximately 2 weeks and developed temperatures up to 102 and increasing abdominal pain primarily in her pelvis she described the pain is severe radiations into her back she becomes nauseous but she does not vomit pain in her pelvis is needed. She describes his pain as 9/10, is currently receiving Dilaudid as needed denies itching mental clouding fatigue drowsiness she has no past medical or smoking or drinking. She was taken low dose of [place] prior to this hospitalization she has not had some for frequent early renewals of her pain medication there is no past medical history of suicidal ideations or drug use she is not asked for increasing dose of her pain medications. Not asked for increasing route of administration I do not believe she is asked for pain control medication as a response to situational stress where she insisted on certain pain medication the pain is interfering with her physical function mood sleeping patterns. At the time I examined patient she is in extreme is complaining of severe abdominal pain with radiations into her back. Constitutional: chills Past Medical History Medical History: other (History of endometriosis) Past Surgical History Past Surgical Hx: other (BALJIT/BSO, topic , ) Social History Alcohol Use: none Smoking Status: Never smoker Drug Use: none, other ( and stable relationship with one partner) Exam/Review of Systems Vital Signs Vitals Vital Signs Date Time Temp Pulse Resp B/P Pulse Ox O2 Delivery O2 Flow Rate FiO2 06/26/17 07:52 98.2 67 18 101/57 100 06/22/17 20:24 Room Air Intake and Output 06/25/17 06/25/17 06/26/17 15:00 23:00 07:00 Intake Total 50 ml 1735 ml 50 ml Balance 50 ml 1735 ml 50 ml Exam Constitutional: alert, distress, oriented, well developed Psych: nl mood/affect, no complaints Head: atraumatic, normocephalic Neck: non-tender, supple Respiratory: other (Breath sounds right lung without rales rhonchi wheezing or crackles left lung decreased breath sounds without rales rhonchi wheezing rubs) Cardiovascular: nl pulses, regular rate and rhythm Gastrointestinal: bowel sounds (Low active bowel sounds tender all 4 quadrants without rebound or peritoneal signs) Neurological: INFECTION PREVENTION COORDINATOR II-XII intact, nl mental status, nl speech, nl strength Results Result Diagram: 06/26/1744006/26/171 Results 24 hrs Laboratory Tests Test 06/25/17 09:01 06/26/17 04:39 06/26/17 04:41 Sodium Level 144 147 H 146 H Potassium Level 3.1 L 3.8 4.0 Chloride Level 101 108 105 Carbon Dioxide Level 33 H 29 28 Anion Gap 13 14 17 H Blood Urea Nitrogen 3 L 3 L Creatinine 0.77 0.69 Glucose Level 102 91 Calcium Level 9.1 9.7 Total Bilirubin 0.2 Direct Bilirubin 0.00 Indirect Bilirubin 0.2 Aspartate Amino Transf (AST/SGOT) 25 Alanine Aminotransferase (ALT/SGPT) 30 Alkaline Phosphatase 72 Total Protein 7.3 Albumin 3.7 Globulin 3.60 H Albumin/Globulin Ratio 1.02 White Blood Count 5.3 # Red Blood Count 3.63 L Hemoglobin 11.0 L Hematocrit 32.0 L Mean Corpuscular Volume 88.2 Mean Corpuscular Hemoglobin 30.3 Mean Corpuscular Hemoglobin Concent 34.4 Red Cell Distribution Width 12.1 Platelet Count 241 Mean Platelet Volume 9.9 Neutrophils % 36.7 L Lymphocytes % 41.4 Monocytes % 9.1 Eosinophils % 11.6 H Basophils % 1.0 Nucleated Red Blood Cells % 0.0 Neutrophils # 1.9 Lymphocytes # 2.2 Monocytes # 0.5 Eosinophils # 0.6 H Basophils # 0.1 Nucleated Red Blood Cells # 0.0 Medications Medications Current Medications Hydromorphone HCl 1 mg 1 mg Q2 PRN IV pain Last administered on 06/25/17t 13: 05; Admin Dose 1 MG; Start 06/22/17 at 21:30 Dextrose/Lactated Ringer's 1,000 ml @ 125 mls/hr Q8H IV Last administered on 06/26/17 05:45; Admin Dose 125 MLS/HR; Start 06/22/17 at 21:30 Piperacillin Sod/ Tazobactam Sod (Zosyn 3.375gm/ 50 ml (Pmx)) 50 ml @ 100 mls/ hr Q6 IVPB Last administered on 06/26/17 05:45; Admin Dose 100 MLS/HR; Start 06/23/17 at 00:00 Ondansetron HCl (Zofran Inj) 4 mg Q6H PRN IV NAUSEA AND/OR VOMITING Last administered on 06/25/17 23:06; Admin Dose 4 MG; Start 06/23/17 at 00:30 Oxycodone/ Acetaminophen (Percocet (5/ 325)) 1 tab Q4H PRN PO PAIN; Start at 10:00 Oxycodone/ Acetaminophen (Percocet (5/ 325)) 2 tab Q4H PRN PO PAIN Last administered on 06/25/17 22:34; Admin Dose 2 TAB; Start 06/25/17 at 10:00 Ketorolac Tromethamine (Toradol) 15 mg Q6H PRN IM PAIN Last administered on 21:30; Admin Dose 15 MG; Start 06/25/17 at 13:30; Stop 06/28/17 at 13: 29 Potassium Chloride (Klor-Con 10) 30 meq BID PO Last administered on 06/25/17 20:33; Admin Dose 30 MEQ; Start 06/25/17 at 21:00 Ketorolac Tromethamine (Toradol) 30 mg Q6H PRN IM for pain -05/10 Last administered on 06/25/17 23:12; Admin Dose 30 MG; Start 06/26/17 at 05:00; Stop 06/29/17 at 04:59 LIZZIE KAPOOR Jun 26, 2017 08:22
[2017-06-26] MEDS ORDERED: KETOROLAC 15 MG INJ IV SCH (08:30)
[2017-06-26] MEDS ORDERED: METHYLNALTREXONE 12 MG/0.6 ML VIAL SC SCH (09:00)
[2017-06-26] MEDS ORDERED: HYDROmorphONE 0.2 MG/ML PCA IV SCH (09:00)
[2017-06-26] MEDS: POTASSIUM CHLORIDE (SR) 10 MEQ TAB PO SCH ×2 (09:09→21:15)
--- NOTE | 2017-06-26 09:20 | PN ---
Date/Time of Note Date/Time of Note DATE: 06/26/17 TIME: 09:18 Assessment/Plan VTE Prophylaxis VTE Prophylaxis Intervention: SCD's Lines/Catheters IV Catheter Type (from Nrsg): Peripheral IV Assessment/Plan Chief Complaint/Hosp Course Summary Assessment and Plan: Assessment: Abdominal pain/ Pelvic pain-S/p BALJIT BSO for hx of severe pelvic endometriosis R/o inflammatory process vs ischemic Nausea/vomiting/improved Leukocytosis/resolved Plan: IBD markers-pending Continue pain management Continue antiemetic medication Plan for colonoscopy tomorrow. Npo after 10am tomorrow morning Patient seen in collaboration with Dr. macdonald Subjective: Course reviewed with nursing staff Patient interviewed and examined All labs, imaging and other results reviewed With change in pain medication nausea and vomiting have decreased, will plan for colonoscopy tomorrow Pt continues to c/o lower abd pain, worse to LLQ. PHYSICAL EXAMINATION: GENERAL: Well developed, well nourished, alert & oriented x 3, in no acute distress SKIN: No lesions, no stigmata chronic liver disease, no evidence of bleeding diathesis, surgical scars LYMPHATIC: No palpable lymphadenopathy. HEAD: Normocephalic, atraumatic, no tenderness. EYES: Pupils equal reactive to light and accommodation, full extraocular movements, sclera clear, non-icteric, no discharge. EARS/NOSE AND THROAT: Ears normal, nose normal, oropharynx normal, oral membranes well hydrated without lesions. NECK: Supple, no masses, CARDIOVASCULAR: Heart: Regular rate and rhythm, no murmurs, gallops or rubs. GASTROINTESTINAL AND LIVER: Abdomen: Soft, non tenderness, non-distended, no hernias, no masses, no organomegaly, no ascites, no guarding, no rebound tenderness, normoactive bowel sounds. Rectal: Deferred. GENITOURINARY: Female genitalia within normal limits. Problems: Exam/Review of Systems Vital Signs Vitals Vital Signs Date Time Temp Pulse Resp B/P Pulse Ox O2 Delivery O2 Flow Rate FiO2 06/26/17 07:52 98.2 67 18 101/57 100 06/22/17 20:24 Room Air Intake and Output 06/25/17 06/25/17 06/26/17 15:00 23:00 07:00 Intake Total 50 ml 1735 ml 1155 ml Balance 50 ml 1735 ml 1155 ml Results Result Diagram: 06/26/17 04406/26/17440 Results 24 hrs Laboratory Tests Test 06/26/17 04:39 06/26/17 04:41 Sodium Level 147 H 146 H Potassium Level 3.8 4.0 Chloride Level 108 105 Carbon Dioxide Level 29 28 Anion Gap 14 17 H Blood Urea Nitrogen 3 L Creatinine 0.69 Glucose Level 91 Calcium Level 9.7 Total Bilirubin 0.2 Direct Bilirubin 0.00 Indirect Bilirubin 0.2 Aspartate Amino Transf (AST/SGOT) 25 Alanine Aminotransferase (ALT/SGPT) 30 Alkaline Phosphatase 72 Total Protein 7.3 Albumin 3.7 Globulin 3.60 H Albumin/Globulin Ratio 1.02 White Blood Count 5.3 # Red Blood Count 3.63 L Hemoglobin 11.0 L Hematocrit 32.0 L Mean Corpuscular Volume 88.2 Mean Corpuscular Hemoglobin 30.3 Mean Corpuscular Hemoglobin Concent 34.4 Red Cell Distribution Width 12.1 Platelet Count 241 Mean Platelet Volume 9.9 Neutrophils % 36.7 L Lymphocytes % 41.4 Monocytes % 9.1 Eosinophils % 11.6 H Basophils % 1.0 Nucleated Red Blood Cells % 0.0 Neutrophils # 1.9 Lymphocytes # 2.2 Monocytes # 0.5 Eosinophils # 0.6 H Basophils # 0.1 Nucleated Red Blood Cells # 0.0 Medications Medications Current Medications Dextrose/Lactated Ringer's 1,000 ml @ 125 mls/hr Q8H IV Last administered on 06/26/17 05:45; Admin Dose 125 MLS/HR; Start 06/22/17 at 21:30 Piperacillin Sod/ Tazobactam Sod (Zosyn 3.375gm/ 50 ml (Pmx)) 50 ml @ 100 mls/ hr Q6 IVPB Last administered on 06/26/17 05:45; Admin Dose 100 MLS/HR; Start 06/23/17 at 00:00 Ondansetron HCl (Zofran Inj) 4 mg Q6H PRN IV NAUSEA AND/OR VOMITING Last administered on 06/25/17 23:06; Admin Dose 4 MG; Start 06/23/17 at 00:30 Potassium Chloride (Klor-Con 10) 30 meq BID PO Last administered on 06/26/17 09:09; Admin Dose 30 MEQ; Start 06/25/17 at 21:00 Hydromorphone HCl (Dilaudid MANAGER OF PLANNING) 0.2 MG/HR CONTINUOUS RATE ... Q4PCA IV ; Start 06/26/17 at 09:00 Ketorolac Tromethamine (Toradol) 15 mg Q6H IV ; Start 06/26/17 at 08:30; Stop 06/29/17 at 08:29 Methylnaltrexone [place] (Relistor) 12 mg Q48H SC ; Start 06/26/17 at 09:00 STARR OLMEDO Jun 26, 2017 09:20
[2017-06-26] MEDS ORDERED: BISACODYL (EC) 5 MG TAB PO ONE (09:30)
[2017-06-26] MEDS ORDERED: KETOROLAC 15 MG INJ IV PRN (10:30)
--- NOTE | 2017-06-26 12:54 | PN ---
Date/Time of Note Date/Time of Note DATE: 06/26/17 TIME: 12:51 Assessment/Plan VTE Prophylaxis VTE Prophylaxis Intervention: SCD's Lines/Catheters IV Catheter Type (from Nrs): Peripheral IV Assessment/Plan Chief Complaint/Hosp Course Assessment and plan 1. Abdominal pain. Patient did have CT scan of the abdomen showing new thick- walled short segment of the sigmoid colon suspect for possible inflammatory process. Patient remains on antibiotics. Continue with analgesics. no plan for surgery per surgeon. GI following. Plan for colonoscopy 2. Asymmetric enhancement of the iliofemoral venous system with decreased enhancement of the left iliofemoral venous system suspect for possible thrombosis. Recent Doppler ultrasound was negative for any thrombotic issue. Monitor for now. Consider vascular surgeon pending clinical course 3. Dysuria. . Remains on antibiotics for now. 4. History of severe endometriosis status post BSO/BALJIT. Continue with INSTRUMENT MAKER recommendations. Disposition plan: pain management following. plan for colonoscopy. Will follow up Discussed plan of care Dr. Santiago Problems: Subjective 24 Hr Interval Summary Free Text/Dictation reports less pain at this time Exam/Review of Systems Vital Signs Vitals Vital Signs Date Time Temp Pulse Resp B/P Pulse Ox O2 Delivery O2 Flow Rate FiO2 06/26/17 07:52 98.2 67 18 101/57 100 06/22/17 20:24 Room Air Intake and Output 06/25/17 06/25/17 06/26/17 15:00 23:00 07:00 Intake Total 50 ml 1735 ml 1155 ml Balance 50 ml 1735 ml 1155 ml Exam Constitutional: alert, oriented Psych: nl mood/affect, no complaints Head: normocephalic Eyes: nl conjunctiva Respiratory: clear to auscultation, normal air movement Cardiovascular: regular rate and rhythm Gastrointestinal: soft, tender Musculoskeletal: nl extremities to inspection, nl gait and stance Neurological: PEANUT BLANCHER II-XII intact, nl mental status, nl speech Skin: nl turgor Results Result Diagram: 06/26/1744006/26/17440 Results 24 hrs Laboratory Tests Test 06/26/17 04:39 06/26/17 04:41 Sodium Level 147 H 146 H Potassium Level 3.8 4.0 Chloride Level 108 105 Carbon Dioxide Level 29 28 Anion Gap 14 17 H Blood Urea Nitrogen 3 L Creatinine 0.69 Glucose Level 91 Calcium Level 9.7 Total Bilirubin 0.2 Direct Bilirubin 0.00 Indirect Bilirubin 0.2 Aspartate Amino Transf (AST/SGOT) 25 Alanine Aminotransferase (ALT/SGPT) 30 Alkaline Phosphatase 72 Total Protein 7.3 Albumin 3.7 Globulin 3.60 H Albumin/Globulin Ratio 1.02 White Blood Count 5.3 # Red Blood Count 3.63 L Hemoglobin 11.0 L Hematocrit 32.0 L Mean Corpuscular Volume 88.2 Mean Corpuscular Hemoglobin 30.3 Mean Corpuscular Hemoglobin Concent 34.4 Red Cell Distribution Width 12.1 Platelet Count 241 Mean Platelet Volume 9.9 Neutrophils % 36.7 L Lymphocytes % 41.4 Monocytes % 9.1 Eosinophils % 11.6 H Basophils % 1.0 Nucleated Red Blood Cells % 0.0 Neutrophils # 1.9 Lymphocytes # 2.2 Monocytes # 0.5 Eosinophils # 0.6 H Basophils # 0.1 Nucleated Red Blood Cells # 0.0 Medications Medications Current Medications Dextrose/Lactated Ringer's 1,000 ml @ 125 mls/hr Q8H IV Last administered on 06/26/17 05:45; Admin Dose 125 MLS/HR; Start 06/22/17 at 21:30 Piperacillin Sod/ Tazobactam Sod (Zosyn 3.375gm/ 50 ml (Pmx)) 50 ml @ 100 mls/ hr Q6 IVPB Last administered on 06/26/17 12:20; Admin Dose 100 MLS/HR; Start 06/23/17 at 00:00 Ondansetron HCl (Zofran Inj) 4 mg Q6H PRN IV NAUSEA AND/OR VOMITING Last administered on 06/25/17 23:06; Admin Dose 4 MG; Start 06/23/17 at 00:30 Potassium Chloride (Klor-Con 10) 30 meq BID PO Last administered on 06/26/17 09:09; Admin Dose 30 MEQ; Start 06/25/17 at 21:00 Methylnaltrexone [place] (Relistor) 12 mg Q48H SC ; Start 06/26/17 at 09:00 Magnesium Citrate (Citroma) 300 ml ONCE ONCE PO ; Start 06/26/17 at 17:30; Stop 06/26/17 at 17:31 Polyethylene Glycol (Miralax) 119 gm ONCE ONCE PO ; Start 06/26/17 at 18:30; Stop 06/26/17 at 18:31 Metronidazole (Flagyl) 500 mg Q8 PO ; Start 06/26/17 at 14:00 Ketorolac Tromethamine (Toradol) 30 mg Q6H PRN IV SEVERE PAIN LEVEL 7-10; Start 06/26/17 at 10:30; Stop 06/29/17 at 10:29 Ketorolac Tromethamine (Toradol) 15 mg Q6H PRN IV PAIN; Start 06/26/17 at 10: 30; Stop 06/29/17 at 10:29 YONY LINK Jun 26, 2017 12:54
[2017-06-26] MEDS: KETOROLAC 30 MG INJ IV PRN ×2 (13:58→19:51)
[2017-06-26] MEDS: metroNIDAZOLE 500 MG TAB PO SCH ×2 (13:58→21:15)
[2017-06-26 14:32] VITALS: BP 107/67; RESP 18
[2017-06-26] MEDS ORDERED: MAGNESIUM CITRATE 300 ML BTL PO ONE (17:30)
[2017-06-26] MEDS ORDERED: POLYETHYLENE GLYCOL 3350 119 GM POWDER PO ONE (18:30)
[2017-06-26 19:44] VITALS: BP 121/79; RESP 20
[2017-06-27] MEDS ORDERED: POLYETHYLENE GLYCOL 3350 119 GM POWDER PO ONE (06:00)
[2017-06-27] MEDS ORDERED: BISACODYL (EC) 5 MG TAB PO ONE (08:00)
[2017-06-28 12:42] LABS: MYELOPEROXIDASE ANTIBODY <1.0 AI; PROTEINASE-3 ANTIBODY <1.0 AI
== END 2017-06-26 22:24 | disposition left against medical advice (07) | DRG 392 ==
LOC: FTE 14:32 → PP2 19:09
PROVIDERS: ADMIT Obstetrics & Gynecology Obstetrics; ATTEND Obstetrics & Gynecology Obstetrics
DX: R10.9 Unspecified abdominal pain (principal); D72.829 Elevated white blood cell count, unspecified; G89.18 Other acute postprocedural pain; R10.2 Pelvic and perineal pain; R50.82 Postprocedural fever; R30.0 Dysuria; Z90.722 Acquired absence of ovaries, bilateral; Z90.710 Acquired absence of both cervix and uterus; Z90.79 Acquired absence of other genital organ(s)
CPT/HCPCS: 36415; 71020; 74176; 74177; 80048; 80051; 80053; 81001; 81003; 83605; 85025; 85610; 85651; 85730; 86021; 86140; 87040; 87086; 93970; 96374; 96375; J1170; J1885; J2270; J2405; J2543; J7030; J7121; Q9967

== ENCOUNTER 2017-07-01 13:57 | Outpatient (CLI) | payer OTHER ==
[~2017-07-01] VITALS: Ht 160 cm; Wt 64.5 kg
[2017-07-01 14:15] VITALS: BP 120/82; PULSE 79; RESP 16; Ht 160 cm; Wt 64.5 kg
--- NOTE | 2017-07-01 15:32 | PN ---
Date/Time of Note Date/Time of Note DATE: 07/01/17 TIME: 15:25 Outpatient Progress Note Chief Complaint Abdominal pain/endometriosis/status post cystectomy/anemia HPI Abdominal pain/patient was recently admitted with abdominal pain, patient had nausea and vomiting, patient had a nausea and vomiting last time was Tuesday, Minimal abdominal discomfort, no fever chill, patient did have fever and chill before patient was hospitalized, Endometriosis/patient has history of endometriosis, and the patient had total hysterectomy, still has some abdominal discomfort, Status post hysterectomy/patient had recently hysterectomy about a month ago, Anemia/hematemesis or melena, no heartburn, no fatigue, Review of Systems Const: No Fever, no chills, no Wt. loss, no Fatigue, normal appetite, no diaphoresis. Eyes: No pain, no discharge, no redness, no visual change, no foreign body. ENT: No pain, no bleeding, no congestion, no sore throat, no dysphagia, no discharge or rhinitis. Lymph: No adenopathy, no tender nodes, no lymphedema. Resp: No SOB, no cough, no sputum, no wheezing, no chest pain. CV: No chest pain, no palpitaions, no BUTT, no PND, no edema. GI: Normal appetite, mild abdominal pain, no nausea, no vomiting, no diarrhea, no blood, no constipation. : No frequency, no urgency, no dysuria, no hematuria, no flank pain, no discharge, no bleeding. Musc:, no back pain, no neck pain, no knee pain, no restricted ROM. Skin: No rash, no skin lesions, no erythema, no laceration, no bruising, no pruritus. Neuro: No GALAVIZ, no dizziness, no syncope, no seizure, no focal-weakness. Endo: No polyuria, no polydypsia, no dry-skin, no temp-intolerance. Psych: No hallucinations, no depression, no anxiety, no suicidal ideation. Ext: No edema, no pain, no ulcer, no weakness. Physical Exam Vital Signs Date Time Temp Pulse Resp B/P Pulse Ox O2 Delivery O2 Flow Rate FiO2 07/01/17 14:15 98.1 79 16 120/82 99 Room Air General Appearance: A 31 year-old female who appears well-developed, well- nourished, in no acute distress. HEENT: Head normocephalic, atraumatic. Pupils equal, round, reactive to light and accommodate. Sclerae are no jaundice. Nasal turbinates pink without erythema or nasal discharge. Mucous membranes pink and moist without lesions. Oropharynx clear without any exudate or discharge. NECK: Supple. Trachea midline, No thyromegaly, No cervical lymphadenopathy, No mass, No carotid bruits, No JVD, Carotid pulses 2+ bilaterally. PULMONARY: Clear to auscultaion bilaterally, No retractions, Chest expansion symmetric bilaterally, no rales, no ronchi, no dulness on percussion. CARDIAC: Normal SI and S2, Regular rate and rythm, no murmur, gallop, or rub. GASTROINTESTINAL: Abdomen is soft, minimal abdominal discomfort,, Non Rigid, No distention, Positive bowel sounds x4 quadrants, Liver normal. Scar of hysterectomy suprapubically per patient no infection,, SKIN: Warm, dry, no rash, no bruise, no echmosis. EXTREMITIES: Bilateral lower extremities normal, no edema, no phlabitus, pulse palpable, no contracture. MUSCULOSKELETAL: Spine Normal, Non-tender, Normal range of motion, No swelling, no deformity, no clubbing, or cyanosis, the patient has no edema to bilateral lower extremities, dorsalis pedis pulses palpable bilaterally. NEUROLOGIC: The patient is awake, alert, oriented, responding to yes/no questions appropriately, moving all extremities, cranial nerve intact, normal strenght, normal power, normal coordination, normal gait. Allergies Coded Allergies: No Known Allergy (Unverified , 06/01/17) PMH Endometriosis/abdominal pain/status post hysterectomy/anemia/ Social Hx No smoking no drinking, Family Hx Noncontributory, Patient History: Endocrine and metabolic disease 33 FATHER 32 MOTHER Hypertension 33 FATHER 32 MOTHER Assessment/Plan Impression Abdominal pain/endometriosis/status post hysterectomy/anemia plan Patient education done about her condition, patient still has some abdominal discomfort, Patient does not have any fever chill, no rectal bleeding, no constipation or diarrhea, will monitor the pain, patient has run out of the pain medication, Patient to follow with the primary care physician, [place] 5/325 one twice daily #30 Increase activity slowly, discussed with the patient, to follow with the primary care and HAY RAKE OPERATOR MIKAYLA ENNIS MD Jul 01, 2017 15:32
== END 2017-07-01 15:03 | disposition home or self-care (01) ==
LOC: DCC 13:57
PROVIDERS: ATTEND Internal Medicine
DX: R10.9 Unspecified abdominal pain (principal); N80.9 Endometriosis, unspecified; D64.9 Anemia, unspecified; Z90.710 Acquired absence of both cervix and uterus
CPT/HCPCS: G0463

== ENCOUNTER 2017-08-14 13:41 | Emergency (ER) | END 2017-08-14 20:49 | disposition home or self-care (01) ==

== ENCOUNTER 2017-08-22 16:25 | Emergency (ER) | END 2017-08-22 18:09 | disposition home or self-care (01) ==

== ENCOUNTER 2017-09-05 16:42 | Emergency (ER) | END 2017-09-05 20:13 | disposition left against medical advice (07) ==

== ENCOUNTER 2017-10-29 22:59 | Emergency (ER) | END 2017-10-30 02:53 | disposition home or self-care (01) ==

== ENCOUNTER 2017-12-31 20:22 | Emergency (ER) | END 2017-12-31 22:54 | disposition home or self-care (01) ==

== ENCOUNTER 2018-02-01 17:33 | Emergency (ER) | END 2018-02-01 20:47 | disposition left against medical advice (07) ==

== ENCOUNTER 2018-03-22 18:43 | Emergency (ER) | END 2018-03-22 21:19 | disposition home or self-care (01) ==

== ENCOUNTER 2018-04-30 07:06 | Emergency (ER) | END 2018-04-30 09:01 | disposition home or self-care (01) ==

== ENCOUNTER 2018-05-13 07:39 | Emergency (ER) | END 2018-05-13 11:30 | disposition home or self-care (01) ==

== ENCOUNTER 2018-05-24 18:38 | Emergency (ER) | END 2018-05-24 21:58 | disposition home or self-care (01) ==

== ENCOUNTER 2018-07-10 14:39 | Emergency (ER) | END 2018-07-10 17:19 | disposition home or self-care (01) ==

== ENCOUNTER 2018-08-18 19:15 | Emergency (ER) | payer SELFPAY ==
[~2018-08-18] VITALS: Ht 160 cm; Wt 64.2 kg
[~2018-08-18 19:15] MED LIST changes: -ACET325T33 PO; -CETI10CA PO; +CIPR500T4 PO; -CITROMA PO; -DICY10CA60 PO; -GUAI120011 PO; +IBUP-1561 PO; -IBUP400T22 PO; +ONDA4TAB14 PO; +ONDA8TAB14 PO; +PHEN-537 PO; +PHEN-538 PO; +POLY17PO28 PO; +POLY17PO6 PO; +PSEU120T11 PO; +SODI126M NASAL; -TRAM50TA2 PO
[2018-08-18 19:41] VITALS: Ht 160 cm; Wt 64.2 kg
== END 2018-08-18 22:40 | disposition left against medical advice (07) ==
LOC: E/R 19:15
DX: Z53.21 Procedure and treatment not carried out due to patient leaving prior to being seen by health care provider (principal)
CPT/HCPCS: 93005

== ENCOUNTER 2019-05-29 19:58 | Emergency (ER) | payer OTHER ==
[~2019-05-29] VITALS: Ht 162.6 cm; Wt 60.6 kg
[~2019-05-29 19:58] MED LIST changes: +IBUP800T48 PO; +PRED20TA PO; +PROM118S PO; +PROM5SYR2 PO; +SIME180C4 PO
[2019-05-29 20:19] VITALS: BP 139/90; PULSE 92; RESP 18; Ht 162.6 cm; Wt 60.6 kg
[2019-05-29] MEDS ORDERED: KETOROLAC 30 MG INJ IM STA (20:52)
[2019-05-29] MEDS ORDERED: ONDANSETRON (ODT) 4 MG TAB ODT STA (20:52)
[2019-05-29] MEDS ORDERED: PROMETHAZINE/CODEINE 5ML CUP PO ONE (21:00)
== END 2019-05-29 21:55 | disposition home or self-care (01) ==
LOC: FTE 19:58
DX: J06.9 Acute upper respiratory infection, unspecified (principal); Z87.891 Personal history of nicotine dependence
CPT/HCPCS: 71045; 81025; 96372; J1885; Z7502; Z7610

== ENCOUNTER 2019-05-31 14:30 | Emergency (ER) | payer OTHER ==
[~2019-05-31] VITALS: Ht 162.6 cm; Wt 61.8 kg
[2019-05-31 14:35] VITALS: Ht 162.6 cm; Wt 61.8 kg
[2019-05-31] MEDS ORDERED: KETOROLAC 30 MG INJ IV STA (16:18)
[2019-05-31] MEDS ORDERED: PROMETHAZINE/DM (CUP) PO ONE (16:30)
[2019-05-31] MEDS ORDERED: HYDROCODONE/APAP (10/325) TAB PO ONE (16:30)
[2019-05-31] MEDS ORDERED: predniSONE 20 MG TAB PO ONE (16:30)
[2019-05-31] MEDS ORDERED: SOD CHLORIDE 0.9% 1,000 ML IV ONE (16:30)
[2019-05-31 17:54] VITALS: BP 134/90; PULSE 92; RESP 18
== END 2019-05-31 17:56 | disposition home or self-care (01) ==
LOC: FTE 14:30
DX: J06.9 Acute upper respiratory infection, unspecified (principal); Z87.891 Personal history of nicotine dependence
CPT/HCPCS: 36415; 70360; 71045; 81025; 86308; 87400; 87880; 96361; 96374; J1885; J7030; J7512; Z7502; Z7610